=== PATIENT | female | born 1965 | race Caucasian/White ===

== ENCOUNTER 2017-04-04 19:51 | Emergency (ER) | payer MEDICAID ==
[~2017-04-04] VITALS: Ht 172.7 cm; Wt 74.8 kg
[~2017-04-04 19:51] MED LIST: AMITRIPTYLINE50 MG PO; ANTIDEPRESSANT PO; CITALOPRAM HYDR20 MG PO; CYCLOBENZ5 MG PO; HYDROCODONE/ACE1 TA5 PO; HYDROXYZINE50 MG PO; METHADONE 10MG10 MG PO; METOPROLOL50 MG PO; NAPROXEN D/R500 MG PO; OXYCODONE CR10 MG PO; PROPRANOLOL ER80 MG PO; TOPAMAX200 MG PO
--- OUTSIDE RECORDS SUMMARY | 2017-04-04 20:18 | External Medical Summary Rpt ---
Author Author , VINNIE Hager VINNIE Address Unknown Phone [email or web address] [facility] Care Team Providers Care Security Public Safety Officer Name Role Phone A Ariana HIGGINS MD PSC, A Unavailable Unavailable Ariana HIGGINS MD PSC ALHAJERI ABD, Unavailable Unavailable ALHAJERI ABD [facility] Unavailable Unavailable INC, [facility] [employer] Unavailable Unavailable INC, [employer] [facility] [place] LES, [place] Unavailable Unavailable LES AWOSIKA HENRRY, AWOSIKA Unavailable Unavailable HENRRY AWOSIKA HENRRY, AWOSIKA Unavailable Unavailable PUJA DAVALOS, Unavailable Unavailable PUJA SANCHEZ [facility], Unavailable Unavailable [email or web address] Unavailable Unavailable PRACTICE L, [facility] ISAURA FARRIS, Unavailable Unavailable ISAURA FARRIS, Unavailable Unavailable LEO COE Unavailable Unavailable LEO HICKS Unavailable Unavailable LEO ZEPEDA Unavailable Unavailable JONNIE RICHARD, Unavailable Unavailable JONNIE BAILEY [facility] Unavailable Unavailable LABS IN, [facility] ALO KATHY, ALO Unavailable Unavailable KATHY ADAL GEOVANI, Unavailable Unavailable ADAL GETACHEW MARI, Unavailable Unavailable GETACHEW [facility] Unavailable [facility]available [facility], Unavailable [facility]available [facility] ERROL JOSIAH, ERROL JOSIAH Unavailable Unavailable [facility] Unavailable Unavailable [facility], [facility] Unavailable Unavailable [facility], PSC, [facility], Unavailable Unavailable PSC FIELD AM[facility], FIELD AMB Unavailable Unavailable FIELD AMB, FIELD AM[facility] Unavailable Unavailable HUBER BERENICE, Unavailable Unavailable HUBER BERENICE SEGAL SET, SEGAL SET Unavailable Unavailable MICK BERENICE, MICK Unavailable Unavailable BERENICE GENNA COATES, Unavailable Unavailable ZULMA PORTILLO Unavailable Unavailable ZULMA WAYNE Unavailable Unavailable MINOR BUCKNER, Unavailable Unavailable MINOR VILLARREAL [facility] Unavailable Unavailable INC, [facility] CORDERO LUMA, CORDERO Unavailable Unavailable LUMA CORDERO LUMA, CORDERO Unavailable Unavailable LUMA [facility] Un[place] Unavailable [place] [facility], [facility] [place] [facility], Unavailable Unavailable [facility] RASHID MIKE Unavailable Unavailable JUDD MAYA MD Unavailable Unavailable PLC, [facility] MD PLC JUDD MAYA Unavailable Unavailable MDPLC, JUDD MAYA MDPLC GRADY TONI, GRADY Unavailable Unavailable TONI [facility] Un[facility], [facility], Unavailable Unavailable [facility] LAB[facility] & Unavailable Unavailable [facility] Unavailable Unavailable [facility], [facility] Unavailable Unavailable CENTER, [facility] Brea Barton MD, Unavailable Unavailable Brea Barton MD [facility] Unavailable Unavailable SERVICES, [facility] Unavailable Unavailable [facility] Unavailable Unavailable [facility] Unavailable Unavailable PRACTIC, [facility] Unavailable Unavailable MEDICAL, [facility] Unavailable Unavailable [facility]ICAL CENTER, [facility] Unavailable Unavailable MEDICAL, [facility] VISHAL RODGERS Unavailable Unavailable SOFIYA JAM, SOFIYA Unavailable Unavailable JAM SOFIYA JAM, SOFIYA Unavailable Unavailable JAM NONI CLAUDIO, NONI Unavailable Unavailable [facility] Unavailable Unavailable LAB, [facility] Unavailable Unavailable LAB, [facility] PETTEY JAM, PETTEY Unavailable Unavailable JAM PRISTAS, PRISTAS Unavailable Unavailable PRISTAS JULIANNA, PRISTAS Unavailable Unavailable JULIANNA [facility], Unavailable Unavailable [facility] CARMINA TRIP, CARMINA Unavailable Unavailable WAKENDALL ROY, Unavailable Unavailable KENDALL GREWAL REYNOLDS Unavailable Unavailable RISON ALL, RISON ALL Unavailable Unavailable RISON ALL, RISON ALL Unavailable Unavailable RISON, FAITH T, Unavailable Unavailable RISON, FAITH T DEVIN RATLIFF DEVIN Unavailable Unavailable DANIELE RAMIREZ Unavailable Unavailable DANIELE FRANK Unavailable Unavailable CADE PAVAN-KALEE, Unavailable Unavailable SHOJAEI-KALEE GRAY, GRAY Unavailable Unavailable [facility] Unavailable Unavailable [facility], [facility] GAUTAM, GAUTAM Unavailable Unavailable [facility] Unavailable Unavailable [facility], [facility] Unavailable Unavailable [facility]ENT, [facility] Unavailable Unavailable PHYSICIANS, [facility] Unavailable Unavailable [place], [facility], Unavailable Unavailable [facility] Unavailable Unavailable HOSPITALS, [facility] Unavailable Unavailable ASSIST, [facility], Unavailable Unavailable [facility] FANNIE DON, FANNIE Unavailable Unavailable DON FANNIE DON, FANNIE Unavailable Unavailable DON [facility], Unavailable Unavailable [facility] MAG [facility], Unavailable Unavailable [facility] YOUNG FROY, YOUNG FROY Unavailable Unavailable SAM UGALDE, Unavailable Unavailable SAM UGALDE Purpose Continuity of Care Document - 10-01-2009 through 2016 Problems Code Diagnosis DOS Provider Status M542 CERVICALGIA 09-28-2016 [facility] R200 ANESTHESIA 09-28-2016 [facility] OF SKIN PHYSICIANS GROUP M4046 POSTURAL 06-18-2016 [facility] LORDOSIS SERV LUMBAR FOUNDATION REGION M545 LOW BACK 06-18-2016 [facility] PAIN PHYSICIANS ASSIST M549 DORSALGIA 06-18-2016 [facility] M7071 OTHER 06-17-2016 [facility] BURSITIS OF SERV HIP RIGHT FOUNDATION HIP M86004 PAIN IN 06-16-2016 [facility] RIGHT HIP SERV FOUNDATION M899 DISORDER OF 06-16-2016 [facility] BONE SERV UNSPECIFIED FOUNDATION M4722 OT 06-03-2016 [facility] MEDICAL W/RADICULOP ATHY CERVICAL REGION M5020 OT 06-03-2016 [facility] CERVICAL RADIOLOGY DISC ASSOCIAT DISPLACEMEN T UNS CERV REGION M5126 OT 06-03-2016 [facility] INTERVERTEB RADIOLOGY RAL DISC ASSOCIAT DISPLACEMEN T LUMBAR RGN M5416 RADICULOPAT 06-03-2016 [facility] HY LUMBAR REGIONAL REGION MEDICAL [id number] ZAINABGAMA-SAVANNAH 05-21-2016 [facility] IS TYP I RADIOLOGY PHYS FX UP ASSOCIAT RT FEM INIT CLOS N84207 PAIN IN 03-26-2016 [facility] RIGHT WRIST RADIOLOGY ASSOCIAT R51 HEADACHE 03-14-2016 [facility] RADIOLOGY ASSOCIAT R936 ABNORMAL 03-14-2016 [facility] FINDINGS ON RADIOLOGY DIAGNOSTIC ASSOCIAT IMAGING OF [place] [id number] UNSPECIFIED 03-14-2016 [facility] INJURY OF RADIOLOGY HEAD ASSOCIAT INITIAL ENCOUNTER U029ZKF UNSPECIFIED 03-14-2016 [facility] INJURY OF RADIOLOGY NECK ASSOCIAT INITIAL ENCOUNTER R403AWG UNSPECIFIED 03-14-2016 [facility] INJURY OF RADIOLOGY THORAX ASSOCIAT INITIAL ENCOUNTER U51851O UNSPECIFIED 03-14-2016 [facility] INJURY RADIOLOGY RIGHT ELBOW ASSOCIAT INITIAL ENCOUNTER X10486W UNSPECIFIED 03-14-2016 [facility] INJURY RADIOLOGY LEFT ELBOW ASSOCIAT INITIAL ENCOUNTER U15912L UNS 03-14-2016 [facility]ERG[facility] RIGHT PHYS PATELLA INITIAL ENC CLOSED FX K1858CM PSGR INJ 03-14-2016 [facility] N EMERGENCY MOTOR VEH PHYS TRAFFIC ACC INIT ENC Z10189 MIGRAINE 01-21-2016 [facility] MEDICAL UNS NOT SERV INTRACT W/O FOUNDATION STATUS MIGRAINOSUS G4440 DRUG-INDUCE 01-21-2016 [place] [facility] D HEADACHE SERV NEC NOT FOUNDATION INTRACTABLE M6281 MUSCLE 01-21-2016 [facility] WEAKNESS SERV GENERALIZED FOUNDATION M797 FIBROMYALGI 01-21-2016 [facility] A SERV FOUNDATION U6091NO POISON UNS 01-21-2016 [facility] JUDY SERV ANTIPYRET FOUNDATION ANTIRHEUM ACC INIT ENC H608X3 OTHER 11-19-2015 [facility] OTITIS PHYSICIAN EXTERNA PRACTIC BILATERAL H6983 OTHER SPEC 11-19-2015 [facility] DISORDERS PHYSICIAN EUSTACHIAN PRACTIC TUBE BILAT 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 [place] DISC DEGENERATIO N UNS CERV REGION 3393 DRUG 04-24-2015 [facility] INDUCED SERV HEADACHE FOUNDATION NOT ELSEWHERE CLASSIFIED 93519 MIGRAINE 04-24-2015 [facility] INTRACT W/O STATUS MIGRAINOSUS 69268 OTHER&UNSPE 04-24-2015 [facility] CIFIED DISC SERV DISORDER [facility] CERVICAL REGION 7840 HEADACHE 04-24-2015 [facility] SERV FOUNDATION E9359 UNS 04-24-2015 [facility] MEDICAL ANALGESIC&A SERV NTIPYRETIC [place]OUND[place] [address] CONDUCTIVE 04-09-2015 [facility] HEARING PHYSICIAN LOSS PRACTIC BILATERAL 7804 DIZZINESS 04-09-2015 [facility] AND PHYSICIAN GIDDINESS PRACTIC 05444 GENERALIZED 12-27-2014 [facility] ANXIETY RG DISORDER 4019 UNSPECIFIED 09-17-2014 [facility] ESSENTIAL [facility] HYPERTENSIO ASSOCIAT N 7813 LACK OF 09-17-2014 [facility] COORDINATIO RADIOLOGY N ASSOCIAT 87737 OTHER 09-06-2014 [facility] CHRONIC PHYSICIAN OTITIS PRACTIC EXTERNA 470 DEVIATED 09-06-2014 [facility] NASAL PHYSICIAN SEPTUM PRACTIC 75611 ESOPHAGEAL 09-06-2014 [facility] REFLUX PHYSICIAN PRACTIC 7291 UNSPECIFIED 07-17-2014 A Ariana HIGGINS MYALGIA PSC AND MYOSITIS 16305 OTHER 07-17-2014 Henrique HIGGINS MALAISE AND PSC FATIGUE 87367 SUBJECTIVE 05-16-2014 [facility] TINNITUS PHYSICIAN PRACTIC 56692 UNSPECIFIED 05-16-2014 [facility] ABNORMAL PHYSICIAN AUDITORY PRACTIC PERCEPTION 4778 ALLERGIC 05-16-2014 [facility] RHINITIS PHYSICIAN DUE TO PRACTIC OTHER ALLERGEN 7061 OTHER ACNE 05-16-2014 [facility] PHYSICIAN PRACTIC 50982 ACUTE 05-07-2014 [facility] SWIMMERS PHYSICIAN EAR PRACTIC 3804 IMPACTED 05-07-2014 [facility] CERUMEN PHYSICIAN PRACTIC 24510 ACQ 05-07-2014 [facility] STENOSIS PHYSICIAN EXTERNAL PRACTIC EAR CA[place] SEC INFLAMMATIO N 48138 OTOGENIC 05-07-2014 [facility] PAIN PHYSICIAN PRACTIC 7856 ENLARGEMENT 05-07-2014 [facility] OF LYMPH PHYSICIAN NODES PRACTIC 64665 CHRONIC 11-09-2013 FIELD AMB MIGRAINE W/O AURA W/O INTRACTABLE W/O SM 4779 ALLERGIC 10-05-2013 [facility] RHINITIS CAUSE UNSPECIFIED 4659 ACUTE URIS 08-22-2013 [facility] MCINTYRE OF UNSPECIFIED SITE 7862 COUGH 08-22-2013 SO[facility] MCINTYRE 35916 OTHER 08-14-2013 [facility] CHRONIC MAG PAIN 15909 OSTEOARTHRO 08-14-2013 [facility] S UNSPEC MAG WHETHER GEN/LOC UNSPEC SITE 61004 PAIN IN 08-14-2013 [facility] JOINT, MAG SHOULDER REGION 7245 UNSPECIFIED 08-14-2013 [facility] BACKACHE MAG 7273 OTHER 04-19-2013 SOFIYA MCINTYRE BURSITIS DISORDERS 7210 CERVICAL 04-10-2013 [facility] 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 22053 MEDIAL 03-15-2013 [facility] EPICONDYLIT PHYSICIANS IS OF ELBOW GROUP 30309 CLOSED 03-15-2013 [facility] FRACTURE OF PHYSICIANS HEAD OF GROUP RADIUS 41064 MIGRAINE 03-14-2013 [facility], PSC W/O AURA W/O INTRACT W/O STAT MIGRNOSUS 32433 OTHER ACUTE 03-14-2013 ENTLC, PSC OTITIS EXTERNA 94466 DYSFUNCTION 03-14-2013 [facility], PSC OF EUSTACHIAN TUBE 22983 SENSORY 03-14-2013 ENT[facility], PSC HEARING LOSS BILATERAL 6826 CELLULITIS 03-09-2013 [facility] AND ABSCESS PRIMARY OF LEG CARE CENTER EXCEPT FOOT 9492 BLISTERS 03-09-2013 [facility] W/EPIDERMAL PRIMARY LOSS DUE CARE CENTER BURN UNSPEC SITE 2781 LOCALIZED 02-01-2013 [facility] 62989 LATERAL 02-01-2013 [facility] EPICONDYLIT PHYSICIANS IS OF ELBOW GROUP 14057 CONTUSION 02-01-2013 [facility] OF ELBOW PHYSICIANS GROUP 9593 INJURY 02-01-2013 [place] OTHER&UNSPE MEDICAL CIFIED IMAGING ASS ELBOW FOREARM&WRI ST 24741 PAIN IN 01-16-2013 [place] JOINT, HAND MEDICAL IM[facility]ING ASS 7295 PAIN IN 01-16-2013 [place] SOFT MEDICAL TISSUES OF IMAGING ASS LIMB 813.05 813.05 FX 01-16-2013 [facility] 8419 SPRAIN&STRA 01-16-2013 [facility] IN EMERGENCY UNSPECIFIED SERVICES SITE ELBOW&FOREA RM E825.8 E825.8 MV 01-16-2013 [facility] NEC E8889 UNSPECIFIED 01-16-2013 [facility] 7213 LUMBOSACRAL 12-13-2012 JUDD MAYA MD SPONDYLOSIS PLC WITHOUT MYELOPATHY 4618 OTHER ACUTE 11-11-2012 [facility] SINUSITIS [facility]ARE CENTER 2299 BENIGN 09-29-2012 [facility] NEOPLASM OF PRIMARY CARE CENTER UNSPECIFIED SITE V7231 ROUTINE 09-29-2012 [facility] GYNECOLOGIC PRIMARY AL CARE CENTER EXAMINATION V7610 UNSPECIFIED 09-29-2012 [facility] BREAST PRIMARY SCREENING CARE CENTER 72861 OTHER 09-07-2012 [place] DISEASES OF MEDICAL LUNG NOT IMAGING ASS ELSEWHERE CLASSIFIED 31839 ABDOMINAL 08-09-2012 [facility] PAIN, PRIMARY EPIGASTRIC CARE CENTER 7260 ADHESIVE 07-18-2012 [facility] EUSTIS OF SHOULDER PHYSICIANS 19929 OCCL&STENOS 05-25-2012 [place] MX&BILAT MEDICAL PRECERBRL IMAGING ASS ART W/O INFARCT 7842 SWELLING 05-25-2012 [facility] MASS OR [facility] LUMP IN INC HEAD AND NECK 7224 DEGENERATIO 04-19-2012 [facility] N OF MEM HOS[facility] CERVICAL INC INTERVERTEB RAL DISC 7231 CERVICALGIA 04-19-2012 [facility] 77868 SPASM OF 04-19-2012 [facility] MUSCLE [facility]OS[facility] INC 7822 LOCALIZED 04-19-2012 [facility] SUPERFICIAL [facility]OS[facility] SWELLING INC MASS OR LUMP 8489 UNSPECIFIED 04-19-2012 [facility] SITE OF MEM HOSP SPRAIN AND INC STRAIN 8470 NECK SPRAIN 04-06-2012 [facility] AND STRAIN EMERGENCY SERVICES 89443 BORDERLINE 04-05-2012 [facility] HENRRY GLAUCOMA WITH OCULAR HYPERTENSIO N 3671 MYOPIA 04-05-2012 [facility] HENRRY 22102 OTHER VOICE 01-12-2012 [facility] AND [facility] DISORDERS 2129 LIZ 12-23-2011 [facility] NEOPLASM REGIONAL RESP&INTRAT MEDICAL HORACIC ORGN SITE UNSPEC 6259 UNSPEC 09-24-2011 FANNIE BAUTISTA SYMPTOM ASSOC W/FEMALE GENITAL ORGANS 7242 LUMBAGO 09-24-2011 FANNIE BAUTISTA V6709 FOLLOW-UP 09-24-2011 FANNIE BAUTISTA EXAMINATION FOLLOWING OTHER SURGERY 50351 PAIN IN 09-16-2011 ST JO[facility], SITE JANE PHYSICIANS UNSPECIFIED 4928 OTHER 09-15-2011 LEO MOHAMUD EMPHYSEMA 5180 PULMONARY 09-15-2011 LE[facility] MOHAMUD COLLAPSE 2189 LEIOMYOMA 08-11-2011 [facility] OF [facility]TER[facility], [place] UNSPECIFIED INC 6160 CERVICITIS 08-11-2011 [facility] AND [place] ENDOCERVICI INC TIS 6253 DYSMENORRHE 08-11-2011 [facility] A [facility]ARE [facility] 6262 EXCESSIVE 08-11-2011 [facility] OR FREQUENT PRIMARY CARE CENTER MENSTRUATIO N 6268 OTH D/O 08-11-2011 DANIELE MOHAMUD MENSTRUATIO N&OTH ABN BLEED FE GNT TRACT 45753 ABDOMINAL 08-11-2011 [facility] PAIN RIGHT PRIMARY LOWER CARE CENTER QUADRANT 4871 INFLUENZA 08-10-2011 [facility] WITH OTHER REGIONAL RESPIRATORY MEDICAL MANIFESTATI ONS V7283 OTHER 08-10-2011 [facility] SPECIFIED REGIONAL PRE-OPERATI MEDICAL VE EXAMINATION 7238 OTHER 08-07-2011 RISON ALL SYNDROMES AFFECTING CERVICAL REGION 496 CHRONIC 08-05-2011 GIL GE AIRWAY OBSTRUCTION NEC V7284 UNSPECIFIED 08-05-2011 [facility] REGIONAL PRE-OPERATI MEDICAL VE EXAMINATION 52936 DISORDER OF 07-08-2011 [place] BONE AND MEDICAL CARTILAGE IMAGING ASS UNSPECIFIED V7612 OTHER 07-08-2011 [facility] SCREENING [facility] MAMMOGRAM INC 7292 UNSPECIFIED 07-02-2011 [facility] NEURALGIA PRIMARY NEURITIS CARE CENTER AND RADICULITIS 6212 HYPERTROPHY 06-18-2011 [facility] OF UTERUS PRIMARY CARE CENTER 6250 DYSPAREUNIA 06-18-2011 [facility] 06497 ABDOMINAL/P 06-18-2011 [facility] ELVIC PRIMARY SWELLING CARE CENTER MASS/LUMP UNSPEC SITE V7381 SPECIAL 05-28-2011 PATHOLOGY & SCREENING CYTOLOGY EXAMINATION LAB HUMAN PAPILVIRUS V7388 SPECIAL SCR 05-28-2011 [facility] PRIMARY EXAMINATION CARE CENTER OTH SPEC CHLAMYDIAL DZ V745 SCREENING 05-28-2011 PATHOLOGY & EXAMINATION CYTOLOGY FOR LAB VENEREAL DISEASE V762 SCREENING 05-28-2011 [facility] FOR PRIMARY MALIGNANT CARE CENTER NEOPLASM OF THE CERVIX 61478 MUSCLE 12-23-2010 [facility] WEAKNESS [facility] (GENERALIZE [place] [facility] D) 57013 OTHER 12-23-2010 [facility] GENERAL [facility] SYMPTOMS [place] [facility] 7812 ABNORMALITY 12-23-2010 [facility] OF GAIT [facility] [place] [facility] V571 OTHER 12-23-2010 [facility] PHYSICAL [facility] THERAPY [place] [address] UNSPECIFIED 07-25-2010 [facility] SITE OF PRIMARY ANKLE CARE CENTER SPRAIN AND STRAIN 7212 THORACIC 06-02-2010 JUDD Lopez SPONDYLOSIS MAYA WITHOUT MDPLC MYELOPATHY 53412 OTHER ANKLE 05-29-2010 [facility] SPRAIN AND PHYSICIANS STRAIN GROUP 98331 SWELLING OF 05-19-2010 [place] [facility] 38225 SPRAIN AND 05-19-2010 [facility] STRAIN OF EMERGENCY UNSPECIFIED SERVICES SITE OF FOOT 9597 INJURY 05-19-2010 [place] OTHER&UNSPE MEDICAL CIFIED KNEE IMAGING ASS LEG ANKLE&FOOT 7202 SACROILIITI 05-05-2010 JUDD E. S NOT MAYA ELSEWHERE [facility] CLASSIFIED 74223 OTHER JOINT 05-01-2010 [facility] DERANGEMENT [place] [facility] NEC MULTIPLE SITES 02243 OTHER 05-01-2010 [facility] DISORDERS [facility] OF SOFT [place] [facility] TISSUE 97745 ABNORMAL 05-01-2010 [facility] POSTURE [facility] [place] [facility] 4011 ESSENTIAL 01-28-2010 LABORATORY HYPERTENSIO & N, BENIGN BIODIAGNOST ICS 6929 CONTACT 01-28-2010 LABORATORY DERMATITIS& & OTHER BIODIAGNOST ECZEMA DUE ICS UNSPEC CAUSE V771 SCREENING 01-28-2010 [facility] FOR PRIMARY DIABETES CARE MELLITUS CENTERINC V7791 SCREENING 01-28-2010 [facility] FOR LIPOID PRIMARY DISORDERS CARE CENTERINC V2542 SURVEILLANC 11-18-2009 [facility] E PREV PRSC PRIMARY INTRAUTERN CARE CNTRACPT CENTERINC DEVC V2502 GENERAL 10-16-2009 [facility] OT CENTER CONTRACEPT MEASURES 21628 BORDERLINE 10-01-2009 LEXI SANCHEZ PUJA ANGLE BL FINDINGS LOW RSK Allergies, Adverse Reactions, Alerts Type Drug Allergy Adverse Reaction to Substance Substance Reaction Severity Morphine I-ITCHING Unknown Medications Na ND Rx Da Fi Fi Am Da Di Ph RX Ph St me C No te ll ll ou ys ag ar # ys at rm s nt no ma ic us Or Da si cy ia de te s n re d BU 55 04 0 No TO 39 -2 RP 00 9- Lo HICKS 18 20 ng NO 30 13 er L 1 1 Ac MG ti /M ve L AL ME 00 04 0 No OM 64 -2 ET 11 9- Lo HICKS 49 20 ng ZI 53 13 er NE 5 Ac 25 ti ve MG /M L AM PU L VA 00 10 10 0 70 5 DE 64 WI Ac ND 24 -2 -2 .0 AN 17 LS ti AZ 50 4- 4- 00 S 63 ON ve OL 86 20 20 PH 6 E 07 11 11 AR DO VA 0 MA NA GI CY LD NA R L IN 0. C 75 % GE L SM 49 10 10 0 60 30 DE 64 RI Ac 34 -0 -0 .0 AN [address] 80 6- 7- 00 S 91 N ve OO 61 20 20 PH 6 AL L 61 11 11 AR LA SO 0 MA N FT CY T EN ER IN C 10 0 MG SF TG L 00 09 09 0 90 30 DE 40 FL Ac 59 -2 -2 .0 AN 64 ET ti 10 7- 7- 00 S 41 CH ve 54 20 20 PH 9 ER 00 11 11 AR 5 MA AK CY CH AE IN L C E CI 00 08 08 0 7. 7 DE 64 RA Ac ME 06 -3 -3 50 AN 15 NK ti OD 58 0- 0- 0 S 13 IN ve EX 53 20 20 PH 3 30 11 11 AR WA OT 2 MA DE IC CY M KISER IN SP C EN SI ON ME 00 08 08 2 30 30 DE 64 RA Ac TO 37 -3 -3 .0 AN 15 NK ti ME 80 0- 0- 00 S 13 IN ve OL 42 20 20 PH 4 OL 40 11 11 AR WA -H [address] CY M Z 50 IN -2 C 5 MG TA B HY 10 08 08 2 60 6 DE [address] 70 -3 -3 .0 AN 15 NK ti OX 20 0- 0- 00 S 13 IN ve YZ 01 20 20 PH 5 IN 25 11 11 AR WA E 0 MA DE HC CY M L 50 IN C MG TA BL ET AM 00 12 12 0 30 30 DE 64 RI Ac IT 60 -0 -0 .0 AN 03 SO ti RI 32 7- 8- 00 S 71 N ve PT 21 20 20 PH 1 AL YL 43 10 10 AR LA IN 2 MA N E CY T HC L IN 50 C MG TA B AM 00 11 11 0 30 30 DE 64 RI Ac IT 60 -1 -1 .0 AN 02 SO ti RI 32 1- 1- 00 S 59 N ve PT 21 20 20 PH 4 AL YL 43 10 10 AR LA IN 2 MA N E CY T HC L IN 50 C MG TA B 00 11 11 1 30 30 DE 64 RA Ac 37 -0 -0 .0 AN 02 NK ti 81 5- 5- 00 S 30 IN ve 08 20 20 PH 1 90 10 10 AR WA 1 MA DE CY M IN C AM 00 10 10 0 30 30 DE 64 RI Ac IT 60 -1 -1 .0 AN 01 SO ti RI 32 2- 2- 00 S 23 N ve PT 21 20 20 PH 3 AL YL 43 10 10 AR LA IN 2 MA N E CY T HC L IN 50 C MG TA B AM 00 08 08 0 30 30 DE 63 RI Ac IT 60 -1 -2 .0 AN 99 SO ti RI 32 6- 3- 00 S 07 N ve PT 21 20 20 PH 8 AL YL 33 10 10 AR LA IN 2 MA N E CY T HC L IN 25 C MG TA B AM 00 07 07 2 30 30 DE 63 RI Ac IT 60 -1 -1 .0 AN 97 SO ti RI 32 2- 2- 00 S 44 N ve PT 21 20 20 PH 6 AL YL 33 10 10 AR LA IN 2 MA N E CY T HC L IN 25 C MG TA B ME 00 06 06 2 30 30 DE 63 RA Ac TO 37 -1 -1 .0 AN 96 NK ti ME 80 6- 6- 00 S 47 IN ve OL 42 20 20 PH 5 OL 40 10 10 AR WA -H [address] CY M Z 50 IN -2 C 5 MG TA B CY 00 05 06 2 30 30 DE 63 RA Ac MB 00 -1 -1 .0 AN 94 NK ti AL 23 1- 5- 00 S 99 IN ve TA 27 20 20 PH 5 03 10 10 AR WA 60 0 MA DE CY M MG IN CA C PS UL E HY 16 05 05 2 60 6 DE [address] 71 -2 -2 .0 AN 95 NK ti OX 40 8- 8- 00 S 72 IN ve YZ 08 20 20 PH 9 IN 30 10 10 AR WA E 5 MA DE HC CY M L 50 IN C MG TA BL ET 00 05 05 0 15 5 DE 63 RA Ac 14 -1 -1 .0 AN 94 NK ti 31 1- 1- 00 S 99 IN ve 47 20 20 PH 4 70 10 10 AR WA 5 MA DE CY M IN C HY 00 05 05 2 30 30 DE [address] 60 -1 -1 .0 AN 94 NK ti OC 33 1- 1- 00 S 99 IN ve HL 85 20 20 PH 6 OR 63 10 10 AR WA OT 2 MA DE HI CY M AZ ID IN E C 25 MG TA B AM 00 04 04 0 30 30 DE 63 RI Ac IT 60 -2 -2 .0 AN 94 SO ti RI 32 8- 9- 00 S 55 N ve PT 21 20 20 PH 2 AL YL 33 10 10 AR LA IN 2 MA N E CY T HC L IN 25 C MG TA B 00 03 03 0 60 30 DE 40 RI Ac 59 -0 -0 .0 AN 60 SO ti 10 2- 2- 00 S 53 N ve 85 20 20 PH 0 AL 30 10 10 AR LA 1 MA N CY T IN C 00 03 03 11 30 30 DE 63 KE Ac 00 -0 -0 .0 AN 91 EF ti 54 1- 1- 00 S 91 ve 23 20 20 PH 2 KI 41 10 10 AR MB 9 MA ER CY LY IN C CY 00 01 02 00 90 30 DE 63 HICKS Ac CL 59 -2 -1 .0 AN 90 RR ti OB 15 9- 1- 00 S 72 IE ve EN 65 20 20 PH 6 S ZA 81 10 10 AR DA ME 0 MA IN CY D E P 10 MG TA BL ET AK 50 01 01 00 1. 1 MA 60 ME Ac RE 41 -2 -2 00 YS 19 ES ti NA 90 1- 8- 0 68 E ve [address] SY [address] 1 OB HE EM /G N YN P FA AK LY HE AL TH Vital Signs 01-16-2013 21:13 Name Value Interpretat Reference Comment ion Range Body 98.8 [degF] Temperature BP 89 mm[Hg] Diastolic BP Systolic 157 mm[Hg] Heart 83 /min Rate/Pulse O2% 99 % Respiratory 18 /min Rate 01-16-2013 21:11 Name Value Interpretat Reference Comment ion Range Body 98.8 [degF] Temperature BP 89 mm[Hg] Diastolic BP Systolic 157 mm[Hg] Heart 83 /min Rate/Pulse O2% 99 % Respiratory 18 /min Rate Procedures Procedure DOS Code Location Performer Comment [facility]LE 28144 [facility] PHYSICIAN KAYLYNN EXTREMTY S GROUP W/PARASPI NL AREA COMPLETE NERVE 16751 [facility] SEANJAEI-M CONDUCTIO 7 PHYSICIAN KAYLYNN N STUDIES S GROUP 3-4 STUDIES RADEX 53747 [facility] SPINE 6 HEALTHCAR HEALTHCAR CERVICAL E E 2 OR 3 HOSPITALS HOSPITALS VIEWS RADEX 84447 [facility] SPINE 6 HEALTHCAR HEALTHCAR LUMBOSACR E E AL 2/3 HOSPITALS HOSPITALS VIEWS INJECTION J3301 [place]RAY 6 MEDICAL TRIAMCINO SERV LONE FOUNDATIO ACETONIDE N NOS 10 MG ARTHROCEN 95639 [place] TESIS 6 MEDICAL ASPIR&/IN SERV J MAJOR FOUNDATIO JT/BURSA N W/US RADEX 44154 [place] [facility] HIPS 6 MEDICAL BILATERAL SERV WITH FOUNDATIO PELVIS N 3-4 VIEWS MRI 78433 [place] [facility] SPINAL 6 CANAL RADIOLOGY LUMBAR ASSOCIAT W/O CONTRAST MATERIAL MRI 71747 [place] [facility] SPINAL 6 CANAL RADIOLOGY CERVICAL ASSOCIAT W/O CONTRAST MATRL MRI ANY 03321 [facility] JT LOWER 6 EXTREM RADIOLOGY RADIOLOGY W/CONTRAS ASSOCIAT ASSOCIAT T MATERIAL FLUOROSCO 05139 [facility] PIC 6 GUIDANCE RADIOLOGY RADIOLOGY NEEDLE ASSOCIAT ASSOCIAT PLACEMENT [place] ANY [address] [facility] U[facility] 6 LUMA EXTREMITY RADIOLOGY W/O ASSOCIAT CONTRAST MATRL RADIOLOGI 16141 [facility] C EXAM 6 [place] KNEE RADIOLOGY COMPLETE ASSOCIAT 4/MORE VIEWS RADEX 00125 [facility] SPINE 6 THORACIC RADIOLOGY RADIOLOGY 3 [place] [address] [facility] HEAD/BRAI 6 N W/O RADIOLOGY RADIOLOG[place] [address] [facility] CERVICAL 6 SPINE W/O RADIOLOGY RADIOLOGY CONTRAST ASSOCIAT ASSOCIAT MATERIAL RADEX 19769 [facility] ELBOW 6 EIDER AMINATA COMPLETE RADIOLOGY MINIMUM 3 ASSOCIAT VIEWS TYMPANOME 45106 MEADOWVIE ALO TRY 6 W KATHY PHYSICIAN PRACTIC NERVE 07667 GEORGIE CHENEY CONDUCTIO 6 MEDICAL CLAUDIO N STUDIES SERV 5-6 FOUNDATIO STUDIES N NEEDLE 97467 GEORGIE CHENEY EMG EA 6 MEDICAL CLAUDIO EXTREMTY SERV W/PARASPI FOUNDATIO NL AREA N COMPLETE MRI 89653 GEORGIE FLORIANHAMAHAMEDRI SPINAL 6 MEDICAL ABD CANAL SERV CERVICAL FOUNDATIO W/O N CONTRAST MATRL TYMPANOME 17602 [place] TRY 6 PHYSICIAN LES PRACTICE L COMPRE 80041 MEADOWVIE SEGAL SET AUDIOMETR 5 W Y PHYSICIAN THRESHOLD PRACTIC EVAL SP RECOGNIJ TYMPANOME 42086 MEADOWVIE SEGAL SET TRY 5 W PHYSICIAN PRACTIC PSYCHOTHE 04680 [facility] PRISTAS RAPY 5 .ORG JULIANNA W/PATIENT 60 MINUTES PSYCHOTHE 26558 [facility] PRISTAS RAPY 5 .ORG JULIANNA W/PATIENT 60 MINUTES PSYCHOTHE 99502 [facility] PRISTAS RAPY 5 .ORG JULIANNA W/PATIENT 60 MINUTES PSYCHOTHE 76097 [facility] PRISTAS RAPY 5 .ORG JULIANNA W/PATIENT 60 MINUTES PSYCHOTHE 72323 [facility] PRISTAS RAPY 5 .ORG W/PATIENT 60 MINUTES PSYCHIATR 30143 [facility] RODGERS IC 5 .ORG DIAGNOSTI C EVAL W/MEDICAL SERVICES PSYCHOTHE 48740 [facility] PRISTAS RAPY 5 .ORG W/PATIENT 60 MINUTES MRI BRAIN 34789 ORQUIDEA HEARD BRAIN 4 W W STEM W/O REGIONAL REGIONAL CONTRAST MEDICAL MEDICAL MATERIAL PSYCHOTHE 32549 [facility] PRISTAS RAPY 4 .ORG JULIANNA W/PATIENT 30 MINUTES PSYCHOTHE 04503 [facility] PRISTAS RAPY 4 .ORG JULIANNA W/PATIENT 30 MINUTES PSYCHOTHE 79766 [facility] PRISTAS RAPY 4 .ORG JULIANNA W/PATIENT 30 MINUTES PSYCHOTHE 75392 [facility] PRISTAS RAPY 4 .ORG JULIANNA W/PATIENT 30 MINUTES PSYCHOTHE 74022 [facility] PRISTAS RAPY 4 .ORG JULIANNA W/PATIENT 30 MINUTES PROF [facility] 37718 [place]IE ALO ALLG 4 W KATHY IMMNTX X PHYSICIAN W/PRV PRACTIC ALLGIC XTRCS 1 NJX BINOCULAR 20125 MEADOWVIE ALO 4 W KATHY MICROSCOP PHYSICIAN Y PRACTIC SEPARATE DX PROCEDURE REMOVAL 90183 ALPHONSEVIE ALO IMPACTED 4 W KATHY CERUMEN PHYSICIAN INSTRUMEN PRACTIC TATION UNILAT PROF [facility] 54577 MEADOWVIE ALO ALLG 4 W KATHY IMMNTX X PHYSICIAN W/PRV PRACTIC ALLGIC XTRCS 1 NJX ALLERGEN 15339 COMMONWEA COMMONWEA SPECIFIC 4 LTH LTH IGE MEDICAL MEDICAL EDUARDO/SEMI LABS IN LABS IN EDUARDO EA ALLERGEN PREPJ& 42030 MEADOWVIE ALO ALLERGEN 4 W KATHY IMMUNOTHE PHYSICIAN HAYDE PRACTIC 1/ROLL OPERATOR ANTIGEN INTRACUTA 67753 ORQUIDEA ALO NEOUS 4 W KATHY TESTS PHYSICIAN W/ALLERGE PRACTIC CLARISSA EXTRACTS NONINVASI 67522 FIELD AMB FIELD AMB VE 4 EAR/PULSE OXIMETRY SINGLE DETER IAADIADOO 24702 SOFIYA ARRIAZA 3 JAM JAM INFLUENZA ARTHROCEN 54277 BRENNENSKA DENEENA TESIS 3 MAG MAG ASPIR&/IN J MAJOR JT/BURSA W/O US INJ J0702 DENEENHenrique DENEENHenrique BETAMETHA 3 MAG MAG SONE ACETATE & PHOSPHATE 3 MG INJ J0702 SOFIYA ARRIAZA BETAMETHA 3 JAM JAM SONE ACETATE & PHOSPHATE 3 MG THERAPEUT 18286 SOFIYA ARRIAZA IC 3 JAM JAM PROPHYLAC TIC/DX INJECTION SUBQ/IM COMPRE 12956 ENTLC, ALO AUDIOMETR 3 PSC KATHY Y THRESHOLD EVAL SP RECOGNIJ TYMPANOME 34381 ENTLC, CA TRY 3 PSC LEI RADEX 42426 TABBY MCNAIR ELBOW 2 3 [facility] VIEWS INC INC SLINGS A4565 [facility] 3 RADEX [facility]15 [facility] AD[facility] HAND 3 MEDICAL GE[place] MINIMUM 3 IMAGING VIEWS ASS INJECTION J0595 TABBY MCNAIR 3 [facility] BUTORPHAN INC INC OL TARTRATE 1 [place] [address] SURINDER BARTON RADIAL 3 EMERGENCY BERENICE HEAD/NECK SERVICES FX W/O MANIPULAT ION THERAPEUT 52915 TABBY MCNAIR IC 3 [facility] PROPHYLAC INC INC TIC/DX INJECTION SUBQ/IM RADEX 66740 DANIELA ADAL FOREARM 2 3 MEDICAL GEOVANI VIEWS IMAGING ASS THERAPEUT 85333 ONEYDA ARRIAZA IC 3 PRIMARY JAM PROPHYLAC CARE TIC/DX CENTER INJECTION SUBQ/IM CREATININ 03828 [facility]BY MCNAIR E BLOOD 2 [facility] INC INC 3D 53726 TABBY TABBY RENDERING 2 [facility] INC INC W/INTERP& POSTPROC DIFF WORK STATION LOC Q9967 TABBY MCNAIR 300-399 2 [facility] MG/ML INC INC IODINE CONCENTRA TION PER ML CT THORAX 68778 [facility] MC[facility]IR 2 [facility] W/[place] [address] [facility]BY MCNAIR UREA 2 [facility] NITROGEN [place] [address] [facility] THYROID 2 DIAGNOSTI DIAGNOSTI STIMULATI CS CS NG HORMONE TSH BASIC 26957 [facility] METABOLIC 2 DIAGNOSTI DIAGNOSTI PANEL CS CS CALCIUM TOTAL COLLECTIO 37539 [facility] N VENOUS 2 DIAGNOSTI DIAGNOSTI BLOOD CS CS VENIPUNCT URE ARTHROCEN 97557 [facility] T[facility] 2 JANE MAG ASPIR&/IN J MAJOR PHYSICIAN JT/BURSA S W/O US INJECTION J3301 BRENNENHenrique 2 JANE MAG TRIAMCINO LONE PHYSICIAN ACETONIDE S NOS 10 MG DUPLEX 49682 [facility]BY MCNAIR SCAN 2 [facility] EXTRACRAN INC INC IAL ART COMPL BI STUDY MRI ORBIT 30786 [place] ADAL FACE 2 MEDICAL GE[place]ANI &/NECK IMAGING W/O ASS CONTRAST MRI 38765 [place] ADAL SPINAL 2 MEDICAL GE[place] CANAL IMAGING CERVICAL ASS W/O CONTRAST MATRL 3D 90620 TABBY MCNAIR RENDERING 2 [facility] W/INTERP INC INC & POSTPROCE SS SUPERVISI ON COLLECTIO [address] N VENOUS 2 JANEJOCELYN LARA BLOOD VENIPUNCT MEDICALCE MEDICALCE URE NTER NTER SEDIMENTA [address] TION RATE 2 JANEALVIN DUNLAPTH RBC AUTOMATED MEDICALCE MEDICALCE NTER NTER C-REACTIV [address] E PROTEIN 2 JANEALVIN LARA MEDICALCE MEDICALCE NTER NTER RADEX 13622 [place] ADAL SPINE 2 MEDICAL [place] CERVICAL IMAGING 2 OR 3 ASS VIEWS CERVICAL L0120 [facility] FLEXIBLE 2 NONADJUST ABLE PREFAB OFF SHELF THERAPEUT 22919 [facility] IC 2 [facility] PROPHYLAC INC INC TIC/DX INJECTION SUBQ/IM RADEX 68967 TABBY MCNAIR SPINE 2 [facility] CERVICAL INC INC 6 OR MORE VIEWS VISUAL 78117 AWOSIKELLY AWOSIKA FIELD XM 2 HENRRY HENRRY UNI/BI W/INTERP INTERMED EXAM DETERMINA 36385 AWOSIKA AWOSIKA TION 2 HENRRY HENRRY REFRACTIV E STATE FUNDUS 36072 AWOS[facility] AWOSIKA PHOTOGRAP 2 HENRRY HENRRY HY W/INTERPR ETATION & REPORT CT THORAX 56151 [facility] 2 LUMA W/CONTRAS RADIOLOGY T ASSOCIAT MATERIAL 3D 48757 [facility] RENDERING 2 LUMA W/INTERP RADIOLOGY & ASSOCIAT POSTPROCE SS SUPERVISI ON CYCLIC 91048 [facility] CITRULLIN 1 JANE LARA ATED PEPTIDE MEDICALCE [place] [address] [facility] HEPATITIS 1 JANE LARA B SURFACE MEDICALCE MEDICALCE ANTIGEN NTER NTER COLLECTIO 69552 [facility] N VENOUS 1 JANE LARA BLOOD VENIPUNCT MEDICALCE MEDICALCE URE NTER NTER SEDIMENTA 28978 [facility] TION RATE 1 JANE LARA RBC AUTOMATED MEDICALCE MEDICALCE NTER NTER RHEUMATOI 21374 [facility] D FACTOR 1 JANE LARA QUALITATI VE MEDICALCE MEDICALCE NTER NTER RADEX 63728 [facility] FOOT 1 JANE MAG COMPLETE MINIMUM 3 PHYSICIAN VIEWS S RADIOLOGI 72736 [facility] C 1 JANE EXAMINATI ON KNEE 3 PHYSICIAN VIEWS S GENERAL 23825 [facility] HEALTH 1 JANE LARA PANEL MEDICALCE MEDICALCE NTER NTER RADEX 77792 [facility] HAND 1 JANE MAG MINIMUM 3 VIEWS PHYSICIAN S C-REACTIV [address] E PROTEIN 1 JANE LARA MEDICALCE MEDICALCE NTER NTER HEPATITIS [address] C 1 JANE LARA ANTIBODY MEDICALCE MEDICALCE NTER NTER LOCM Q9967 MEADOWVIE MEADOWVIE 300-399 1 W W MG/ML REGIONAL REGIONAL IODINE MEDICAL MEDICAL CONCENTRA TION PER ML CT THORAX 78277 [facility] 1 [facility] W/CONTRAS T MATERIAL COLLECTIO 46435 MEADOWVIE MEADOWVIE N VENOUS 1 W W BLOOD REGIONAL REGIONAL VENIPUNCT MEDICAL MEDICAL URE COMPREHEN 60631 MEADOWVIE MEADOWVIE SIVE 1 W W METABOLIC REGIONAL REGIONAL PANEL MEDICAL MEDICAL 3D 25023 [facility] RENDERING 1 [facility] W/INTERP & POSTPROCE SS SUPERVISI ON ANESTHESI 33021 DANIELE SANABRIA A 1 [facility] INTRAPERI TONEAL LOWER ABD W/LAPS NOS LAPAROSCO 56563 ONEYDA GRECO PY W 1 PRIMARY DON TOTAL CARE HYSTERECT CENTER PATIENCE UTERUS 250 GM/< LEVEL V 26489 AMERIPATH AMERIPATH SURG 1 [facility] PATHOLOGY INC INC GROSS&BERENICE ROSCOPIC EXAM RADIOLOGI 18571 MEADOWVIE MEADOWVIE C EXAM 1 W W CHEST 2 REGIONAL REGIONAL VIEWS MEDICAL MEDICAL FRONTAL&L ATERAL INJECTION 33693 RISON ALL RISON ALL 1 ANESTHETI C AGENT [facility] NRV RADIOLOGI 98760 MEADOWVIE MEADOWVIE C EXAM 1 W W CHEST 2 REGIONAL REGIONAL VIEWS MEDICAL MEDICAL FRONTAL&L ATERAL BLOOD 39557 MEADOWVIE MEADOWVIE COUNT 1 W W COMPLETE REGIONAL REGIONAL AUTO&AUTO MEDICAL MEDICAL DIFRNTL WBC ECG 45029 MEADOWVIE MEADOWVIE ROUTINE 1 W W ECG REGIONAL REGIONAL W/LEAST MEDICAL MEDICAL 12 LDS TRCG ONLY W/O I&R COMPREHEN 25120 MEADOWVIE MEADOWVIE SIVE 1 W W METABOLIC REGIONAL REGIONAL PANEL MEDICAL MEDICAL URNLS DIP 58790 ORQUIDEA NGOWVIE 1 W W STICK/TAB REGIONAL REGIONAL LET MEDICAL MEDICAL REAGENT AUTO MICROSCOP Y COLLECTIO 37978 ORQUIDEA HEARD N VENOUS 1 W W BLOOD REGIONAL [place] [address] ONEYDA LIU FANNIE TRANSVAGI 1 PRIMARY DON NAL CARE CENTER DXA BONE 73005 TABBY MCNAIR DENSITY 1 [facility] STUDY 1/> INC INC SITES AXIAL SKEL ANTINUCLE 93943 LABORATOR LABORATOR AR 1 Y & Y & ANTIBODIE BIODIAGNO BIODIAGNO S LUCIE STICS STICS SEDIMENTA 04256 LABORATOR LABORATOR TION RATE 1 Y & Y & RBC BIODIAGNO BIODIAGNO NON-AUTOM STICS STICS ATED COLLECTIO 03055 ONEYDA LIU CARMINA N VENOUS 1 PRIMARY WAD BLOOD CARE VENIPUNCT CENTER URE ANTISTREP 72525 LABORATOR LABORATOR TOLYSIN O 1 Y & Y & TITER BIODIAGNO BIODIAGNO STICS STICS RHEUMATOI 28483 LABORATOR LABORATOR D FACTOR 1 Y & Y & QUANTITAT BIODIAGNO BIODIAGNO ANUP STICS STICS DNA 41745 LABORATOR LABORATOR ANTIBODY 1 Y & Y & KOTLIK/DO BIODIAGNO BIODIAGNO UBLE STICS STICS STRANDED C-REACTIV 73096 LABORATOR LABORATOR E PROTEIN 1 Y & Y & BIODIAGNO BIODIAGNO STICS STICS IADNA 69217 LABORATOR LABORATOR CHLAMYDIA 1 Y & Y & BIODIAGNO BIODIAGNO TRACHOMAT STICS STICS IS AMPLIFIED PROBE TQ IADNA 71165 LABORATOR LABORATOR NEISSERIA 1 Y & Y & BIODIAGNO BIODIAGNO GONORRHOE STICS STICS AE AMPLIFIED PROBE TQ IADNA 03867 PATHOLOGY PATHOLOGY PAPILLOMA 1 & & VIRUS CYTOLOGY CYTOLOGY HUMAN LAB LAB AMPLIFIED PROBE TQ CYTP C/V 83933 LABORATOR LABORATOR AUTO THIN 1 Y & Y & LYR BIODIAGNO BIODIAGNO PREPJ SCR [place] [address] DANIELA GALEAS TRANSVAGI 1 MEDICAL [facility] NAL IMAGING ASS 3D 05709 DANIELA GALEAS RENDERING 1 MEDICAL [facility] IMAGING W/INTERP& ASS POSTPROC DIFF WORK STATION URINE 60863 TABBY MCNAIR 1 [facility] HOSP TEST INC [place] [address] DANIELA GALEAS ABDOMEN & 1 MEDICAL [place] PELVIS IMAGING W/CONTRAS ASS T MATERIAL RADEX 95209 DANIELA GALEAS SPINE 1 MEDICAL [facility] CERVICAL IMAGING 4 OR 5 ASS VIEWS RADEX 34096 DANIELA GALEAS SPINE 1 MEDICAL [facility] LUMBOSACR IMAGING AL ASS MINIMUM 4 VIEWS RADEX 92868 TABBY MCNAIR SPINE 1 [facility] CERVICAL INC INC 6 OR MORE VIEWS COLLECTIO 46605 ONEYDA CO CARMINA N VENOUS 1 PRIMARY WAD BLOOD CARE VENIPUNCT CENTER URE URNLS DIP 98296 ONEYDA CO CARMINA 1 PRIMARY WAD STICK/TAB CARE LET RGNT CENTER AUTO W/O MICROSCOP Y BASIC 28358 LABORATOR LABORATOR METABOLIC 1 Y & Y & PANEL BIODIAGNO BIODIAGNO [place] [address] LABORATOR LABORATOR THYROID 1 Y & Y & STIMULATI BIODIAGNO BIODIAGNO NG STICS STICS HORMONE TSH BLOOD 06332 LABORATOR LABORATOR COUNT 1 Y & Y & COMPLETE BIODIAGNO BIODIAGNO AUTO&AUTO STICS STICS DIFRNTL WBC NJX 86576 JUDD RISON ALL DX/THER 1 ErikaAngie ZULMA AGT PVRT MDPLC FACET JT LMBR/SAC 1 LEVEL NJX 15357 JUDD RISON ALL DX/THER 1 John MAYA AGT PVRT MDPLC FACET JT LMBR/SAC 2ND LEVEL MODERATE 33356 JUDD RISON ALL SEDATJ 1 John MAYA SAME MDPLC PHYS/QHP 5/>YRS INIT 30 MIN THERAPEUT 16262 [facility]/> 1 TH AREAS [facility] EACH [place] EXERCISES DSTRJ 68438 JUDD RISON ALL NULYT 1 John MAYA PVRT MDPLC FACET JT NRV CRV/THRC EA LVL DSTRJ 93398 JUDD RISON ALL NULYT 1 E. ZULMA PVRT MDPLC FACET JT NRV CRV/THRC 1 LVL FLUOR 63918 JUDD RISON ALL NEEDLE/CA 1 E. MAYA TH MDPLC SPINE/PAR ASPINAL DX/THER ADDON THERAPEUT 27386 [facility]/> 1 TH AREAS [facility] [place] EXERCISES THERAPEUT 25821 [facility] 1/> TH AREAS [facility] [place]ERCISES THERAPEUT 92197 [facility] P[facility] 1/> AREAS [facility] [place] EXERCISES THERAPEUT 77156 [facility] P[facility] 1/> AREAS [facility] [place] EXERCISES THERAPEUT 73335 [facility] PX 1/> AREAS [facility] [place] EXERCISES THERAPEUT 59646 [facility] 1/> AREAS [facility] [place] [place] EXERCISES MODERATE 30241 JUDD RISON ALL SEDATJ 1 E. MAYA SAME MDPLC PHYS/QHP 5/>YRS INIT 30 MIN NJX 21035 JUDD RISON ALL DX/THER 1 E. MAYA AGT PVRT MDPLC FACET JT CRV/THRC 3+ LEVEL NJX 64902 JUDD RISON ALL DX/THER 1 E. MAYA AGT PVRT MDPLC FACET JT CRV/THRC 2ND LEVEL NJX 06275 JUDD RISON ALL DX/THER 1 E. MAYA AGT PVRT MDPLC FACET JT CRV/THRC 1 LEVEL THERAPEUT 60852 [facility] 1/> AREAS [facility] [place] EX[place]ES THERAPEUT 46752 [facility] 1/> 1 TH TH AREAS [facility] [place] [address] [facility]/> AREAS EACH 15 [facility] [place] TH[place] W/XERSS MANUAL 40317 [facility] THERAPY TQS 1/> [facility] [place] 15 [place] [address] [facility]/> AREAS EACH 15 [facility] [place] W/XERSS APPL 25335 [facility] MODALITY 1/> AREAS [facility] [place]AN[place] L THERAPEUT 60104 [facility] PX /> AREAS [facility] [place] [place] [address] [facility]/> AREAS EACH 15 [facility] [place] W/[place] [address] [facility]/> AREAS EACH 15 [facility] [place] W/XERSS APPL 93673 [facility] MODALITY /> AREAS [facility] [place] L THERAPEUT 48161 [facility] PX /> AREAS [facility] [place] EXERCISES THERAPEUT 09818 [facility] PX /> AREAS [facility] [place] [place] [address] [facility]/> AREAS EACH 15 [facility] [place] W/XERSS MANUAL 48835 [facility] THERAPY TQS 1/> [facility] [place] EACH 15 MINUTES MODERATE 46068 JUDD RISON ALL SEDATJ 1 E. MAYA SAME MDPLC PHYS/QHP 5/>YRS INIT 30 MIN NJX 11730 JUDD RISON ALL DX/THER 1 E. ZULMA AGT PVRT MDPLC FACET JT CRV/THRC 3+ LEVEL NJX 17184 JUDD RISON ALL DX/THER 1 E. ZULMA AGT PVRT MDPLC FACET JT CRV/THRC 1 LEVEL NJX 78067 JUDD RISON ALL DX/THER 1 E. ZULMA AGT PVRT MDPLC FACET JT [place] [address] [facility]/> AREAS 1 EACH 15 [facility] [place] W/XERSS APPL 64141 [facility] MODALITY 1 /> AREAS [facility] [place] [address] [facility]/> AREAS 1 EACH 15 [facility] [place] TH[place] W/XERSS THERAPEUT 92932 [facility] PX 1/> AREAS [facility] EACH [place] EXERCISES PHYSICAL 34225 [facility] THERAP[facility] EVALUATIO [facility] [place] [address] JUDD RISON ALL DX/THER 0 E. ZULMA AGT PVRT MDPLC FACET JT CRV/THRC 3+ LEVEL NJX 49999 JUDD RISON ALL DX/THER 0 E. ZULMA AGT PVRT MDPLC FACET JT CRV/THRC 2ND LEVEL NJX 14674 JUDD RISON ALL DX/THER 0 E. ZULMA AGT PVRT MDPLC FACET JT CRV/THRC 1 LEVEL RADEX 50554 [facility] FOOT 0 [facility] COMPLETE INC INC MINIMUM 3 VIEWS RADEX 05819 TABBY IZAGUIRREON ANKLE 0 [facility] COMPLETE INC INC MINIMUM [place] [address] [facility]/> AREAS 0 EACH 15 [facility] [place] W/[place] [address] [facility]/> AREAS 0 TH TH EACH 15 [facility] [place] W/[place] [address] [facility] 1/> AREAS 0 TH TH EACH [address] [facility] [place] [address] [facility] 1/> AREAS 0 TH TH EACH 15 [facility] [place] W/XERSS DSTRJ 52691 JUDD RISON ALL NULYT 0 E. MAYA PVRT MDPLC FACET JT NRV LMBR/SAC EA LVL DSTRJ 32629 JUDD RISON ALL NULYT 0 E. MAYA PVRT MDPLC FACET JT NRV LMBR/SAC 1 LVL FLUOR 11960 JUDD RISON ALL NEEDLE/CA 0 E. MAYA TH MDPLC SPINE/PAR ASPINAL DX/THER ADDON PHYSICAL 24105 [facility] THERAP[facility] 0 TH [facility] [place] DSTRJ 94730 JUDD RISON, NULYT 0 E. MAYA FAITH T PVRT MDPLC FACET JT NRV LMBR/SAC EA LVL FLUOR 78354 JUDD RISON, NEEDLE/CA 0 E. MAYA FAITH T TH MDPLC SPINE/PAR ASPINAL DX/THER ADDON DSTRJ 84748 JUDD RISON, NULYT 0 E. ZULMA FAITH T PVRT MDPLC FACET JT NRV LMBR/SAC 1 LVL NJX 82987 JUDD RISON, DX/THER 0 E. ZULMA FAITH T AGT PVRT MDPLC FACET JT LMBR/SAC 2ND LEVEL NJX 94939 JUDD RISON, DX/THER 0 E. MAYA FAITH T AGT PVRT MDPLC FACET JT LMBR/SAC 1 LEVEL ECG 46331 BRENTONBRENTON, ROUTINE 0 DEL A DEL A ECG W/LEAST 12 LDS I&R ONLY NJX 52838 JUDD FERGUSON, DX/THER 0 John Gardiner AGT PVRT MDPLC FACET JT LMBR/SAC 1 LEVEL RADIOLOGI 75154 [facility] C EXAM [address] [place] [address] CHEST 2 [facility] VIEWS FRONTAL&[place]X [address] JUDD FERGUSON, DX/THER 0 John Gardiner AGT PVRT MDPLC FACET JT LMBR/SAC 2ND LEVEL NJX 42039 JUDD FERGUSON, DX/THER 0 EAngie Gardiner AGT PVRT MDPLC FACET JT LMBR/SAC 3+ [place] [address] [facility] TROPONIN [address] [place] [address] QUANTITAT [facility] ANUP BLOOD [address] [facility] COUNT [address] [place] [address] COMPLETE [facility] AUTO&AUTO DIFRNTL WBC BASIC [address] [facility] METABOLIC [address] [place] [address] PANEL [facility] CALCIUM TOTAL ECG 07196 [facility] ROUTINE [address] [place] [address] ECG [facility] W/LEAST 12 LDS TRCG ONLY W/O I&R DSTR 85595 JUDD TOUSSAINTON, NULYT 0 John Gardiner PVRT MDPLC FACET JT NRV CRV/THRC 1 LVL DSTRJ 19214 JUDD TOUSSAINTON, NULYT 0 John Gardiner PVRT MDPLC FACET JT NRV CRV/THRC EA LVL FLUOR 84568 JUDD FERGUSON, NEEDLE/CA 0 John Gardiner TH MDPLC SPINE/PAR ASPIN[place] [address] LABORATOR LABORATOR THYROID 0 Y & Y & STIMULATI BIODIAGNO BIODIAGNO NG STICS STICS HORMONE TSH BLOOD 46792 LABORATOR LABORATOR COUNT 0 Y & Y & COMPLETE BIODIAGNO BIODIAGNO AUTO&AUTO STICS STICS DIFRNTL WBC HEPATIC 29410 LABORATOR LABORATOR FUNCTION 0 Y & Y & PANEL BIODIAGNO BIODIAGNO STICS STICS HEMOGLOBI 87218 LABORATOR LABORATOR N 0 Y & Y & GLYCOSYLA BIODIAGNO BIODIAGNO MASSIMO A1C STICS STICS COLLECTIO 24051 ONEYDA LIU CARMINA, N VENOUS 0 PRIMARY [facility] M BLOOD CARE VENIPUNCT CENTERINC URE BASIC 90821 LABORATOR LABORATOR METABOLIC 0 Y & Y & PANEL BIODIAGNO BIODIAGNO CALCIUM STICS STICS TOTAL LIPOPROTE 33694 LABORATOR LABORATOR IN BLOOD 0 Y & Y & EDUARDO BIODIAGNO BIODIAGNO NUMBERS & STICS STICS SUBCLASSE S DSTRJ 80539 JUDD TOUSSAINTON, NULYT 0 E. ZULMA Gardiner PVRT MDPLC FACET JT NRV CRV/THRC EA LVL DSTRJ 21935 JUDD RISON, NULYT 0 E. ZULMA Gardiner PVRT MDPLC FACET JT NRV CRV/THRC 1 LVL FLUOR 56055 JUDD TOUSSAINTON, NEEDLE/CA 0 E. ZULMA Gardiner TH MDPLC SPINE/PAR ASPINAL DX/[place]X [address] JUDD RISON, DX/THER 0 E. ZULMA Gardiner AGT PVRT MDPLC FACET JT CRV/THRC 2ND LEVEL NJX 01033 JUDD RISON, DX/THER 0 E. ZULMA Gardiner AGT PVRT MDPLC FACET JT CRV/THRC 1 LEVEL NJX 70795 JUDD RISON, DX/THER 0 E. ZULMA Gardiner AGT PVRT MDPLC FACET JT CRV/THRC 3+ [place]EL NJX 40710 JUDD RISON, DX/THER 0 E. ZULMA Gardiner AGT PVRT MDPLC FACET JT CRV/THRC 3+ [place]EL NJX 45014 JUDD RISON, DX/THER 0 E. ZULMA Gardiner AGT PVRT MDPLC FACET JT CRV/THRC 1 LEVEL NJX 35683 JUDD RISON, DX/THER 0 E. ZULMA Gardiner AGT PVRT MDPLC FACET JT CRV/THRC 2ND LEVEL BLOOD 11283 ONEYDA UGALDE, COUNT 0 PRIMARY SAM HEMOGLOBI CARE N CENTERINC COLLECTIO 62592 ONEYDA UGALDE, N 0 PRIMARY SAM CAPILLARY CARE BLOOD CENTERINC SPECIMEN 3D 45196 GETACHEW C ADAL, RENDERING 0 ADAL EGTACHEW W/INTERP & POSTPROCE [place] MRI 63847 GETACHEW C ADAL, SPINAL 0 ADAL GETACHEW CANAL LUMBAR W/O CONTRAST MATERIAL MRI 66554 GETACHEW C ADAL, SPINAL 0 ADAL GETACHEW CANAL CERVICAL W/[place]X 06475 CHERELLE VILLARREAL, DX/THER 0 MINOR Ziegler AGT PVRT FACET JT CRV/THRC 2ND [place]EL NJX 32270 CHERELLE VILLARREAL, DX/THER 0 MINOR Ziegler AGT PVRT FACET JT CRV/THRC 1 LEVEL NJX 23425 CHERELLE VILLARREAL, DX/THER 0 MINOR Ziegler AGT PVRT FACET JT CRV/THRC 3+ LEVEL GONADOTRO 13341 ORQUIDEA HEARD PIN 0 W W [facility] CENTER CENTER ANUP COLLECTIO 13985 ORQUIDEA HEARD N VENOUS 0 W W [facility] CENTER SCREENING 75837 DAYSI BAILEY, [address] MAMMOGRAP RADIOLOGY HY BILATERAL ASSOCIATE S PSC IADNA 62727 [facility] [place] [facility] TRACHOMAT IS AMPLIFIED PROBE TQ CYTP 86483 [facility] CERV/VAG 0 [facility] AUTO THIN LAYER PREP MNL SCREEN IADNA 14606 [facility] [place] 0 [facility] GONORRHOE AE AMPLIFIED PROBE TQ DETERMINA 12671 LAURA SANCHEZ, TION 0 PUJA LUO REFRACTIV E STATE FUNDUS 73912 LAURA SANCHEZ, PHOTOGRAP 0 PUJA LUO HY W/INTERPR ETATION & REPORT OPHTH 54201 LAURA SANCHEZ, MEDICAL 0 PUJA LUO XM&EVAL COMPRE NEW PT 1/> VST APPLICATI 93.54 M. Leo ON OF Mick DIAZ SPLINT Encounters Encounter Start End Date Code Location Performer Type Date [facility] TAB[facility] - 7 7 [facility] 84103 [facility] 6 [place] PHYSIC[place] NEW/ESTAB S ASSIST PATIENT 40 MIN [facility]OSP[facility] - 6 [facility] OFFICE 03790 [facility] 6 6 [place] PHYS[place] NEW/ESTAB S ASSIST PATIENT 40 MIN HOSPITAL MEAWVIE - 6 6 W [facility] T MEDICAL EMERGENCY 95911 [facility] DEPT 6 6 JACOB CHR VISIT EMERGENCY HIGH PHYS SEVERITY& THREAT [facility] UNIVERSIT [facility] 6 6 Y [facility] T OFFICE 29968 [facility] 6 MEDICAL TONI T VISIT SERV 25 FOUNDATIO MINUTES N OFFICE 03260 [facility] 6 6 Y T VISIT 5 HOSPITAL MINUTES OFFICE 21797 [facility] 6 6 W KATHY T VISIT 5 PHYSICIAN MINUTES [facility] UN[facility] 6 6 Y [facility] T OFFICE 90496 [place] [facility] 5 MEDICAL TONI T VISIT SERV 25 FOUNDATIO MINUTES N OFFICE 60777 [facility] 5 5 Y T [facility]ISIT 5 [facility] UNIVERSIT - [address] [facility] UNIVERSIT [facility] 5 5 Y [facility] T OFFICE 54709 [place] [facility] 5 5 MEDICAL TONI ION SERV NEW/ESTAB FOUNDATIO PATIENT N 60 MIN OFFICE 57428 [facility] 5 5 Y T VISIT 5 [facility] CAPRIWSONY - 4 4 W OUTPATIEN REGIONAL T MEDICAL OFFICE 50729 [facility] 4 4 W KATHY T VISIT PHYSICIAN 25 PRACTIC MINUTES OFFICE 04008 A C FIELD AMB OUTPATIEN 4 4 RONALDO DIAZ T VISIT PSC 15 MINUTES OFFICE 77101 [facility] 4 4 W KATHY T VISIT PHYSICIAN 15 PRACTIC MINUTES OFFICE 06298 [facility] 4 4 W KATHY T VISIT PHYSICIAN 15 PRACTIC MINUTES OFFICE 17936 FIELD AMB FIELD AMB OUTPATIEN 4 4 T VISIT 15 MINUTES OFFICE 30228 FIELD AMB FIELD AMB OUTPATIEN 4 4 T VISIT 15 MINUTES OFFICE 78160 FIELD AMB FIELD AMB OUTPATIEN 4 4 T NEW 30 MINUTES OFFICE 36205 SOFIYA ARRIAZA OUTPATIEN 3 3 JAM JAM T VISIT 25 MINUTES OFFICE 93912 WINIARSKA WINIARSKA OUTPATIEN 3 3 MAG MAG T VISIT 25 MINUTES OFFICE 12500 SOFIYA OUTPATIEN 3 3 JAM T VISIT 25 MINUTES OFFICE 77328 ZULMA MAYA OUTPATIEN 3 3 STEPHANIE STEPHANIE T VISIT 5 MINUTES OFFICE 00530 [facility] OUTPATIEN 3 3 PHYSICIAN JAM T VISIT S GROUP 15 MINUTES OFFICE 12053 [facility], [place] CONSULTAT 3 3 PSC LEI ION NEW/ESTAB PATIENT 40 MIN OFFICE 95427 JUDD HUBER OUTPATIEN 3 3 John MAYA BERENICE T VISIT 5 MDPLC MINUTES OFFICE 22291 ONEYDA ARRIAZA OUTPATIEN 3 3 PRIMARY JAM T VISIT CARE 25 CENTER MINUTES OFFICE 34412 JUDD MAYA OUTPATIEN 3 3 ZULMA STEPHANIE T VISIT 5 MD PLC MINUTES OFFICE 05153 [facility] OUTPATIEN 3 3 PHYSICIAN JAM T VISIT S GROUP 15 MINUTES [facility]OSPITAL [facility] - 3 3 [facility] T OFFICE [address] [facility] DENEENA OUTPATIEN 3 3 JANE MAG T VISIT 25 PHYSICIAN MINUTES S OFFICE 88348 [facility] OUTPATIEN 3 3 PHYSICIAN JAM T NEW 30 S GROUP MINUTES Emergency KELLY Barton MD (ER) 3 19:39 3 21:14 [facility] TABBY - 3 3 [facility] OUTPATIEN INC T EMERGENCY 12321 SURINDER BARTON 3 3 EMERGENCY BERENICE DEPARTMEN SERVICES T VISIT HIGH/URGE NT SEVERITY EMERGENCY 78337 [facility] 3 3 [facility] DEPARTMEN INC T VISIT MODERATE SEVERITY OFFICE 06984 JUDD FERGUSON ALL OUTPATIEN 3 3 MAYA T VISIT 5 PLC MINUTES OFFICE 43865 JUDD FERGUSON ALL OUTPATIEN 3 3 MAYA T VISIT 5 PLC MINUTES OFFICE 88406 JUDD HUBER OUTPATIEN 3 3 E. MAYA BERENICE T VISIT MDPLC 10 MINUTES OFFICE 27954 [facility] CO OUTPATIEN 3 3 PRIMARY T VISIT CARE 15 CENTER MINUTES OFFICE [address] [facility] JOLYNN OUTPATIEN 3 3 JANE MAG T VISIT 25 PHYSICIAN MINUTES S OFFICE 76020 JUDD HUBER OUTPATIEN 3 3 MAYA BERENICE T VISIT PLC 10 MINUTES PERIODIC 90304 [facility] PREVENTIV 3 3 PRIMARY E MED EST CARE PATIENT CENTER 40-64YRS OFFICE 53513 [facility] CO OUTPATIEN 3 3 PRIMARY T VISIT CARE 15 CENTER [facility] TABBY - 2 2 [facility] OUTPATIEN INC T OFFICE 88877 JUDD TOUSSAINTON ALL OUTPATIEN 2 2 E. MAYA T VISIT MDPLC 10 MINUTES OFFICE 21099 [facility] CO OUTPATIEN 2 2 PRIMARY T VISIT CARE 15 CENTER MINUTES OFFICE 72135 [facility] OUTPATIEN 2 2 PRIMARY T VISIT CARE 15 CENTER MINUTES OFFICE 42815 JUDD MAYA OUTPATIEN 2 2 E. MAYA STEPHANIE T VISIT MDPLC 15 MINUTES OFFICE 36222 [facility] OUTPATIEN 2 2 JANE MAG T VISIT 25 PHYSICIAN MINUTES S OFFICE 10622 JUDD RISON ALL OUTPATIEN 2 2 E. MAYA T VISIT MDPLC 10 MINUTES OFFICE 32653 JUDD TOUSSAINTON ALL OUTPATIEN 2 2 E. MAYA T VISIT [facility] 10 MINUTES [facility]OSP[facility] - 2 2 [facility] OUTPATIEN INC T OFFICE 75185 JUDD TOUSSAINTON ALL OUTPATIEN 2 2 MAYA T VISIT PLC 10 MINUTES [facility]OSP[facility] - 2 2 [facility] OUTPATIEN INC T OFFICE 76462 JUDD TOUSSAINTON ALL OUTPATIEN 2 2 MAY[facility] T VISIT PLC [address] - 2 2 JANE OUTPATIEN T MEDICALCE NTER OFFICE 96068 [facility] OUTPATIEN 2 2 JANE MAG T VISIT 25 PHYSICIAN MINUTES S OFFICE 51034 [facility] OUTPATIEN 2 2 PRIMARY T VISIT CARE 15 CENTER MINUTES EMERGENCY 62453 [facility] 2 2 [facility] DEPARTMEN INC T VISIT MODERATE SEVERITY [facility]OSP[facility] - 2 2 [facility] OUTPATIEN INC T EMERGENCY 15577 SURINDER BELTRAN 2 2 EMERGENCY GAUDENCIO DEPARTMEN SERVICES T VISIT HIGH/URGE NT SEVERITY OFFICE 17512 AWOSIKA AWOSIKA OUTPATIEN 2 2 HENRRY HENRRY T NEW 30 MINUTES OFFICE 44250 JUDD RISON ALL OUTPATIEN 2 2 E. MAYA T VISIT MDPLC 10 MINUTES OFFICE 44267 JUDD DAVENPORTER OUTPATIEN 2 2 E. MAYA BERENICE T VISIT [facility]PLC 10 MINUTES OFFICE 42805 JUDD RISON ALL OUTPATIEN 2 2 E. MAYA T VISIT [facility] 10 MINUTES OFFICE 83862 [facility] OUTPATIEN 2 2 PRIMARY T VISIT CARE 15 CENTER MINUTES OFFICE [address] [facility] OUTPATIEN 2 2 JANE MAG T VISIT 25 PHYSICIAN MINUTES S [facility]OSP[facility] - 2 2 [facility] OFFICE 68863 JUDD RISON ALL OUTPATIEN 2 2 E. MAYA T VISIT [facility] 10 MINUTES OFFICE 95558 JUDD RISON ALL OUTPATIEN 2 2 E. MAYA T VISIT [facility] 10 MINUTES OFFICE 45053 RISON ALL RISON ALL OUTPATIEN 2 2 T VISIT [address] [facility] OUTPATIEN 2 2 JANE MAG T VISIT 25 PHYSICIAN MINUTES S OFFICE 15754 FANNIE GRECO OUTPATIEN 2 2 DON DON T VISIT [address]ES [address] CONSULTAT 1 1 JANE ION NEW/ESTAB PHYSICIAN PATIENT S 60 MIN [facility] [address] [facility] [place] - [address] [facility] ALPHONSEVIE - 1 1 W [facility] OFFICE 77522 [facility] FANNIE OUTPATIEN 1 1 PRIMARY DON T VISIT CARE 25 CENTER MINUTES HOSPITAL [facility] - 1 1 [facility] OUTPATIEN [facility] T OFFICE 97130 [facility] CARMINA OUTPATIEN 1 1 PRIMARY WAD T VISIT CARE 25 CENTER MINUTES OFFICE 64342 JUDD RISON ALL OUTPATIEN 1 1 E. MAYA T VISIT MDPLC 15 MINUTES OFFICE 39716 [facility] AFTAB FROY OUTPATIEN 1 1 PRIMARY T VISIT CARE 25 CENTER MINUTES OFFICE 25710 [facility] ERROL RAHMAN OUTPATIEN 1 1 PRIMARY T VISIT CARE 40 CENTER MINUTES OFFICE 31706 JUDD RISON ALL OUTPATIEN 1 1 E. MAYA T VISIT [facility]PLC 10 MINUTES [facility]OSP[facility] 1 [facility] 1 [facility] OUTPATIEN [facility] T OFFICE 07978 [facility] CARMINA OUTPAT[facility]EN 1 1 PRIMARY WAD T VISIT CARE 25 CENTER MINUTES OFFICE 16863 JUDD HUBER OUTPATIEN 1 1 E. MAYA BERENICE T VISIT [facility] 10 MINUTES [facility] 1 [facility]PATIEN [facility] 1 OUTPATIEN [facility] - 1 OUTPATIEN [facility] OFFICE 38942 JUDD RISON ALL OUTPATIEN 1 1 E. MAYA T VISIT [facility] 15 MINUTES OFFICE 92683 JUDD RISON ALL OUTPATIEN 0 0 E. MAYA T VISIT [facility] 10 MINUTES OFFICE 93201 [facility] CARMINA OUTPATIEN 0 0 PRIMARY WAD T VISIT CARE 25 CENTER MINUTES OFFICE 94812 JUDD RISON ALL OUTPATIEN 0 0 E. MAYA T VISIT [facility] 10 MINUTES OFFICE 92137 [facility] CONSULTAT 0 0 PHYSICIAN FRANCISCO JAVIER OVIEDO NEW/ESTAB PATIENT 60 MIN [facility]OSPITAL [facility] - 0 0 [facility] OUTPATIEN INC T EMERGENCY 08785 [facility] 0 0 [facility] DEPARTMEN INC T VISIT LOW/MODER SEVERITY EMERGENCY 67720 SURINDER BARTON 0 0 EMERGENCY BERENICE DEPARTMEN SERVICES T VISIT HIGH/URGE NT SEVERITY [facility] 48048 KRIS MAYORGA 0 0 PRIMARY KENDALL M T VISIT CARE 10 CENTERINC MINUTES EMERGENCY [address] [facility] DEPT 0 0 HOSPITAL VISIT [place] HIGH SEVERITY& THREAT [facility] - [facility] 44845 BERT MAYORGAPATIEN 0 0 PRIMARY KNEDALL M T VISIT CARE 15 CENTERINC MINUTES OFFICE 10463 BERT CARSONPATIEN 0 0 E. ZULMA COLONAN T T NEW 30 MDPLC MINUTES OFFICE 15488 BERT GIANGPATIEN 0 0 PRIMARY SAM T VISIT CARE 15 CENTERINC MINUTES OFFICE 39103 CHERELLE VILLARREAL OUTPATIEN 0 0 MINOR Ziegler T NEW 45 MINUTES HOSPITAL [facility] - 0 0 [facility]
--- OUTSIDE RECORDS SUMMARY | 2017-04-04 20:18 | External Medical Summary Rpt ---
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 AGENT GREATER OCCIPITAL NRV RADIOLOGI 53573 [facility] ME[facility] C EXAM 1 W W CHEST 2 REGIONAL REGIONAL VIEWS MEDICAL MEDICAL FRONTAL&L ATERAL BLOOD 65580 [facility] COUNT 1 W W COMPLETE REGIONAL REGIONAL AUTO&AUTO MEDICAL MEDICAL DIFRNTL WBC ECG 63712 [facility] ROUTINE 1 W W ECG REGIONAL REGIONAL W/LEAST MEDICAL MEDICAL 12 LDS TRCG ONLY W/O I&R COMPREHEN 94244 ME[facility]IE MEADOWVIE SIVE 1 W W METABOLIC REGIONAL REGIONAL PANEL MEDICAL MEDICAL URNLS DIP 28847 ORQUIDEA NGOWVIE 1 W W STICK/TAB REGIONAL REGIONAL LET MEDICAL MEDICAL REAGENT AUTO MICROSCOP Y COLLECTIO 77295 [facility] HEARD N VENOUS 1 W W BLOOD REGIONAL [place] [address] ONEYDA LIU FANNIE TRANSVAGI 1 [facility]IMARY DON NAL CARE CENTER DXA BONE 03931 TABBY MCNAIR DENSITY 1 [facility] STUDY 1/> INC INC SITES AXIAL SKEL ANTINUCLE 93936 LABORATOR LABORATOR AR 1 Y & Y & ANTIBODIE BIODIAGNO BIODIAGNO S LUCIE STICS STICS SEDIMENTA 62617 LABORATOR LABORATOR TION RATE 1 Y & Y & RBC BIODIAGNO BIODIAGNO NON-AUTOM STICS STICS ATED COLLECTIO 38868 ONEYDA LIU CARMINA N VENOUS 1 PRIMARY WAD BLOOD CARE VENIPUNCT CENTER URE ANTISTREP 98589 LABORATOR LABORATOR TOLYSIN O 1 Y & Y & TITER BIODIAGNO BIODIAGNO STICS STICS RHEUMATOI 80368 LABORATOR LABORATOR D FACTOR 1 Y & Y & QUANTITAT BIODIAGNO BIODIAGNO ANUP STICS STICS DNA 37266 LABORATOR LABORATOR ANTIBODY 1 Y & Y & SHOSHONE-BANNOCK/DO BIODIAGNO BIODIAGNO UBLE STICS STICS STRANDED C-REACTIV 86170 LABORATOR LABORATOR E PROTEIN 1 Y & Y & BIODIAGNO BIODIAGNO STICS STICS IADNA 76668 LABORATOR LABORATOR CHLAMYDIA 1 Y & Y & BIODIAGNO BIODIAGNO TRACHOMAT STICS STICS IS AMPLIFIED PROBE TQ IADNA 60450 LABORATOR LABORATOR NEISSERIA 1 Y & Y & BIODIAGNO BIODIAGNO GONORRHOE STICS STICS AE AMPLIFIED PROBE TQ IADNA 01505 PATHOLOGY PATHOLOGY PAPILLOMA 1 & & VIRUS CYTOLOGY CYTOLOGY HUMAN LAB LAB AMPLIFIED PROBE TQ CYTP C/V 73800 LABORATOR LABORATOR AUTO THIN 1 Y & Y & LYR BIODIAGNO BIODIAGNO PREPJ SCR [place] [address] DANIELA GALEAS TRANSVAGI 1 MEDICAL [facility] NAL IMAGING ASS 3D 07494 DANIELA GALEAS RENDERING 1 MEDICAL [facility] IMAGING W/INTERP& ASS POSTPROC DIFF WORK STATION URINE 17222 TABBY MCNAIR 1 [facility] HOSP TEST INC [place] [address] DANIELA GALEAS ABDOMEN & 1 MEDICAL [facility] PELVIS IMAGING W/CONTRAS ASS T MATERIAL RADEX 51478 DANIELA GALEAS SPINE 1 [facility]ICAL [facility] CERVICAL IMAGING 4 OR 5 ASS VIEWS RADEX 70643 DANIELA GALEAS SPINE 1 MEDICAL [facility] LUMBOSACR IMAGING AL ASS MINIMUM 4 VIEWS RADEX 82445 TABBY MCNAIR SPINE 1 [facility]OS[facility] CERVICAL INC INC 6 OR MORE VIEWS COLLECTIO 50456 ONEYDA CO CARMINA N VENOUS 1 PRIMARY WAD BLOOD CARE VENIPUNCT CENTER URE URNLS DIP 98200 ONEYDA CO CARMINA 1 PRIMARY WAD STICK/TAB CARE LET RGNT CENTER AUTO W/O MICROSCOP Y BASIC 09993 LABORATOR LABORATOR METABOLIC 1 Y & Y & PANEL BIODIAGNO BIODIAGNO [place] [address] LABORATOR LABORATOR THYROID 1 Y & Y & STIMULATI BIODIAGNO BIODIAGNO NG STICS STICS HORMONE TSH BLOOD 75056 LABORATOR LABORATOR COUNT 1 Y & Y & COMPLETE BIODIAGNO BIODIAGNO AUTO&AUTO STICS STICS [place]IFRNTL WBC NJX 83312 JUDD RISON ALL DX/THER 1 ErikaAngie ZULMA AGT PVRT MDPLC FACET JT LMBR/SAC 1 LEVEL NJX 78916 JUDD RISON ALL DX/THER 1 John MAYA AGT PVRT MDPLC FACET JT LMBR/SAC 2ND LEVEL MODERATE 24848 JUDD RISON ALL SEDATJ 1 John MAYA SAME MDPLC PHYS/QHP 5/>YRS INIT 30 MIN THERAPEUT 77332 [facility]/> 1 TH AREAS [facility] E[facility] [place] EXERCISES DSTRJ 78099 JUDD RISON ALL NULYT 1 John MAYA PVRT MDPLC FACET JT NRV CRV/THRC EA LVL DSTRJ 08884 JUDD RISON ALL NULYT 1 E. ZULMA PVRT MDPLC FACET JT NRV CRV/THRC 1 LVL FLUOR 23181 JUDD RISON ALL NEEDLE/CA 1 E. MAYA TH MDPLC SPINE/PAR ASPINAL DX/THER ADDON THERAPEUT 12879 [facility]/> 1 TH AREAS [facility] [place] MIN EXERCISES THERAPEUT 35400 [facility] 1/> TH AREAS [facility] [place] EXERCISES THERAPEUT 01617 [facility] 1/> AREAS [facility] [place] EXERCISES THERAPEUT 66154 [facility] 1/> AREAS [facility] 15 [place] EXERCISES THERAPEUT 45820 [facility] PX 1/> AREAS [facility] [place] [place] EXERCISES THERAPEUT 06860 [facility] 1/> AREAS [facility] [place] [place] EXERCISES MODERATE 75501 JUDD RISON ALL SEDATJ 1 E. MAYA SAME MDPLC PHYS/QHP 5/>YRS INIT 30 MIN NJX 84638 JUDD RISON ALL DX/THER 1 E. MAYA AGT PVRT MDPLC FACET JT CRV/THRC 3+ LEVEL NJX 27753 JUDD RISON ALL DX/THER 1 E. MAYA AGT PVRT MDPLC FACET JT CRV/THRC 2ND LEVEL NJX 04799 JUDD RISON ALL DX/THER 1 E. MAYA AGT PVRT MDPLC FACET JT CRV/THRC 1 LEVEL THERAPEUT 72467 [facility]/> AREAS [facility] [place] [place] EXERCISES THERAPEUT 19501 [facility]/> 1 TH TH AREAS [facility] [place] [address] [facility]/> AREAS EACH 15 [facility] [place] TH[place] W/XERSS MANUAL 97831 [facility] THERAPY TQS 1/> [facility] [place] EACH [place] [address] [facility]/> AREAS EACH 15 [facility] [place] W/XERSS APPL 76775 [facility] MODALITY 1/> AREAS [facility] [place] MECHANICA L THERAPEUT 92903 [facility] PX /> AREAS [facility] [place] [address] [facility]/> AREAS EACH 15 [facility] [place] W/[place] [address] [facility]/> AREAS EACH 15 [facility] [place] W/XERSS APPL 92430 [facility] MODALITY /> AREAS [facility] [place] L THERAPEUT 87510 [facility] PX /> AREAS [facility] [place] EXERCISES THERAPEUT 36565 [facility] PX /> AREAS [facility] [place] [address] [facility]/> AREAS EACH 15 [facility] [place] W/XERSS MANUAL 76471 [facility] THERAPY TQS 1/> [facility] [place] EACH 15 MINUTES MODERATE 40046 JUDD RISON ALL SEDATJ 1 E. MAYA SAME MDPLC PHYS/QHP 5/>YRS INIT 30 MIN NJX 53012 JUDD RISON ALL DX/THER 1 E. ZULMA AGT PVRT MDPLC FACET JT CRV/THRC 3+ LEVEL NJX 01699 JUDD RISON ALL DX/THER 1 E. ZULMA AGT PVRT MDPLC FACET JT CRV/THRC 1 LEVEL NJX 12061 JUDD RISON ALL DX/THER 1 E. ZULMA AGT PVRT MDPLC FACET JT [place] [address] [facility]/> AREAS 1 EACH 15 [facility] [place] W/XERSS APPL 98130 [facility] MODALITY 1 /> AREAS [facility] [place] [address] [facility]/> AREAS 1 EACH 15 [facility] [place] TH[place] W/XERSS THERAPEUT 35948 [facility] 1/> AREAS [facility] EACH 15 [place] EXERCISES PHYSICAL 73966 [facility] TH[facility]APY EVALUATIO [facility] [place] 13925 JUDD RISON ALL DX/THER 0 E. ZULMA AGT PVRT MDPLC FACET JT CRV/THRC 3+ LEVEL NJX 64426 JUDD RISON ALL DX/THER 0 E. ZULMA AGT PVRT MDPLC FACET JT CRV/THRC 2ND LEVEL NJX 26601 JUDD RISON ALL DX/THER 0 E. ZULMA AGT PVRT MDPLC FACET JT CRV/THRC 1 LEVEL RADEX 26649 [facility] FOOT 0 [facility] COMPLETE INC INC MINIMUM 3 VIEWS RADEX 16780 TABBY IZAGUIRREON ANKLE 0 [facility] COMPLETE INC INC MINIMUM [place] [address] [facility]/> AREAS 0 EACH 15 [facility] [place] W/[place] [address] [facility]/> AREAS 0 TH TH EACH 15 [facility] [place] W/[place] [address] [facility]/> AREAS 0 TH TH EACH 15 [facility] [place] [address] [facility]/> AREAS 0 TH TH EACH 15 [facility] [place] W/XERSS DSTRJ 69775 JUDD RISON ALL NULYT 0 E. MAYA PVRT MDPLC FACET JT NRV LMBR/SAC EA LVL DSTRJ 33324 JUDD RISON ALL NULYT 0 E. MAYA PVRT MDPLC FACET JT NRV LMBR/SAC 1 LVL FLUOR 25863 JUDD RISON ALL NEEDLE/CA 0 E. MAYA TH MDPLC SPINE/PAR ASPINAL DX/THER ADDON PHYSICAL 45031 [facility] THERAPY 0 TH TH [facility] [place] DSTRJ 91019 JUDD RISON, NULYT 0 E. MAYA FAITH T PVRT MDPLC FACET JT NRV LMBR/SAC EA LVL FLUOR 56907 JUDD RISON, NEEDLE/CA 0 E. MAYA FAITH T TH MDPLC SPINE/PAR ASPINAL DX/THER ADDON DSTRJ 97823 JUDD RISON, NULYT 0 E. ZULMA FAITH T PVRT MDPLC FACET JT NRV LMBR/SAC 1 LVL NJX 59604 JUDD RISON, DX/THER 0 E. ZULMA FAITH T AGT PVRT MDPLC FACET JT LMBR/SAC 2ND LEVEL NJX 44115 JUDD RISON, DX/THER 0 E. MAYA FAITH T AGT PVRT MDPLC FACET JT LMBR/SAC 1 LEVEL ECG 11744 BRENTONBRENTON, ROUTINE 0 DEL A DEL A ECG W/LEAST 12 LDS I&R ONLY NJX 21166 JUDD FERGUSON, DX/THER 0 John Gardiner AGT PVRT MDPLC FACET JT LMBR/SAC 1 LEVEL RADIOLOGI 68355 [facility] C EXAM [address] [place] [address] CHEST 2 [facility] V[place]WS FRONTAL&[place] [address] JUDD FERGUSON, DX/THER 0 John Gardiner AGT PVRT MDPLC FACET JT LMBR/SAC 2ND LEVEL NJX 52516 JUDD FERGUSON, DX/THER 0 EAngie Gardiner AGT PVRT MDPLC FACET JT LMBR/SAC 3+ [place] [address] [facility] TROPONIN [address] [place] [address] QUANTITAT [facility] ANUP BLOOD 40877 [facility] COUNT [address] [place] [address] COMPLETE [facility] AUTO&AUTO DIFRNTL WBC BASIC 76678 [facility] METABOLIC [address] [place] [address] PANEL [facility] CALCIUM TOTAL ECG 80182 [facility] ROUTINE [address] [place] [address] ECG [facility] W/LEAST 12 LDS TRCG ONLY W/O I&R DSTR 01096 JUDD TOUSSAINTON, NULYT 0 John Gardiner PVRT MDPLC FACET JT NRV CRV/THRC 1 LVL DSTRJ 25349 JUDD TOUSSAINTON, NULYT 0 John Gardiner PVRT MDPLC FACET JT NRV CRV/THRC EA LVL FLUOR 82233 JUDD FERGUSON, NEEDLE/CA 0 John Gardiner TH MDPLC SPINE/PAR ASPINAL DX/[place] [address] LABORATOR LABORATOR THYROID 0 Y & Y & STIMULATI BIODIAGNO BIODIAGNO NG STICS STICS HORMONE TSH BLOOD 35353 LABORATOR LABORATOR COUNT 0 Y & Y & COMPLETE BIODIAGNO BIODIAGNO AUTO&AUTO STICS STICS DIFRNTL WBC HEPATIC 70806 LABORATOR LABORATOR FUNCTION 0 Y & Y & PANEL BIODIAGNO BIODIAGNO STICS STICS HEMOGLOBI 31711 LABORATOR LABORATOR N 0 Y & Y & GLYCOSYLA BIODIAGNO BIODIAGNO MASSIMO A1C STICS STICS COLLECTIO 88201 ONEYDA LIU CARMINA, N VENOUS 0 PRIMARY [facility] M BLOOD CARE VENIPUNCT CENTERINC URE BASIC 85219 LABORATOR LABORATOR METABOLIC 0 Y & Y & PANEL BIODIAGNO BIODIAGNO CALCIUM STICS STICS TOTAL LIPOPROTE 89196 LABORATOR LABORATOR IN BLOOD 0 Y & Y & EDUARDO BIODIAGNO BIODIAGNO NUMBERS & STICS STICS SUBCLASSE S DSTRJ 35378 JUDD TOUSSAINTON, NULYT 0 E. ZULMA Gardiner PVRT MDPLC FACET JT NRV CRV/THRC EA LVL DSTRJ 65240 JUDD RISON, NULYT 0 E. ZULMA Gardiner PVRT MDPLC FACET JT NRV CRV/THRC 1 LVL FLUOR 14253 JUDD TOUSSAINTON, NEEDLE/CA 0 E. ZULMA Gardiner TH MDPLC SPINE/PAR ASP[place]AL DX/[place] [address] JUDD RISON, DX/THER 0 E. ZULMA Gardiner AGT PVRT MDPLC FACET JT CRV/THRC 2ND LEVEL NJX 47421 JUDD RISON, DX/THER 0 E. ZULMA Gardiner AGT PVRT MDPLC FACET JT CRV/THRC 1 LEVEL NJX 48861 JUDD RISON, DX/THER 0 E. ZULMA Gardiner AGT PVRT MDPLC FACET JT CRV/THRC 3+ LEVEL NJX 39686 JUDD RISON, DX/THER 0 E. ZULMA Gardiner AGT PVRT MDPLC FACET JT CRV/THRC 3+ LEVEL NJX 71229 JUDD RISON, DX/THER 0 E. ZULMA Gardiner AGT PVRT MDPLC FACET JT CRV/THRC 1 LEVEL NJX 05574 JUDD RISON, DX/THER 0 E. ZULMA Gardiner AGT PVRT MDPLC FACET JT CRV/THRC 2ND LEVEL BLOOD 92606 ONEYDA UGALDE, COUNT 0 PRIMARY SAM HEMOGLOBI CARE N CENTERINC COLLECTIO 43081 ONEYDA UGALDE, N 0 PRIMARY SAM CAPILLARY CARE BLOOD CENTERINC SPECIMEN 3D 55281 [facility] C ADAL, RENDERING 0 ADAL GETAC[facility]W W/INTERP & [place] [address]365 [facility] C ADAL, SPINAL 0 ADAL GET[facility] CANAL LUMBAR W/O CONTRAST MATERIAL MRI 55093 [facility] C ADAL, SPINAL 0 ADAL GET[facility] CANAL CERVICAL W/[place]X 64684 CHERELLE VILLARREAL, DX/THER 0 MINOR Ziegler AGT PVRT FACET JT CRV/THRC 2ND LEVEL NJX 05578 CHERELLE VILLARREAL, DX/THER 0 MINOR Ziegler AGT PVRT FACET JT CRV/THRC 1 LEVEL NJX 50690 CHERELLE VILLARREAL, DX/THER 0 MINOR Ziegler AGT PVRT FACET JT CRV/THRC 3+ LEVEL GONADOTRO 03391 OR[facility] HEARD PIN 0 W W [facility] CENTER CENTER ANUP COLLECTIO 71903 ORQU[facility] HEARD N VENOUS 0 W W [facility] S[facility]EN[facility] 82123 DAYSI BAILEY, [address] MAMMOGRAP RADIOLOGY HY BILATERAL ASSOCIATE S PSC IADNA 63911 [facility] 0 [facility] TRACHOMAT IS AMPLIFIED PROBE TQ CYTP 15853 [facility] CERV/VAG 0 [facility] AUTO THIN LAYER PREP MNL SCREEN IADNA 18014 [facility] [place] 0 [facility] INC GONORRHOE AE AMPLIFIED PROBE TQ DETERMINA 10501 LAURA SANCHEZ, TION 0 PUJA LUO REFRACTIV E STATE FUNDUS 99323 LAURA SANCHEZ, PHOTOGRAP 0 PUJA LUO HY W/INTERPR ETATION & REPORT OPHTH 60781 LAURA SANCHEZ, MEDICAL 0 PUJA LUO XM&EVAL COMPRE NEW PT 1/> VST APPLICATI 93.54 M. Leo ON OF Mick DIAZ SPLINT Encounters Encounter Start End Date Code Location Performer Type Date [facility] - 7 7 [facility] 24142 [facility] 6 6 [place] PHYSICIAN NEW/ESTAB S ASSIST PATIENT 40 MIN HOSPITAL [facility] - 6 6 [facility] OFFICE 52641 [facility] 6 6 [place] PHYSIC[place] NEW/ESTAB S ASSIST PATIENT 40 MIN HOSPITAL MEAWVIE - 6 6 W [facility] T MEDICAL EMERGENCY 33137 [facility] DEPT 6 6 JACOB CHR VISIT EMERGENCY HIGH PHYS SEVERITY& THREAT [facility] - 6 6 Y [facility] T OFFICE 79690 [facility] 6 MEDICAL TONI T VISIT SERV 25 FOUNDATIO MINUTES N OFFICE 21913 [facility] 6 6 Y T VISIT 5 HOSPITAL MINUTES OFFICE 04787 [facility] 6 6 W KATHY T VISIT 5 PHYSICIAN MINUTES [facility] - 6 6 Y [facility] T OFFICE 06174 [place] [facility] 5 MEDICAL TONI T VISIT SERV 25 FOUNDATIO MINUTES N OFFICE 34397 [facility] 5 5 Y T VISIT 5 [facility] UNIVERSIT - 5 5 Y [facility] UNIVERSIT - 5 5 Y [facility] T OFFICE 20757 [place] [facility] CONS[facility] 5 5 MEDICAL TONI ION SERV NEW/ESTAB FOUNDATIO PATIENT N 60 MIN OFFICE 90883 [facility] 5 5 Y T VISIT 5 [facility] CAPRIWSONY - 4 4 W OUTPATIEN REGIONAL T MEDICAL OFFICE 61391 MEADOWVIE ALO OUTPATIEN 4 4 W KATHY T VISIT PHYSICIAN 25 PRACTIC MINUTES OFFICE 23780 A C FIELD AMB OUTPATIEN 4 4 RONALDO DIAZ T VISIT PSC 15 MINUTES OFFICE 79985 MEADOWSONY ALO OUTPATIEN 4 4 W KATHY T VISIT PHYSICIAN 15 PRACTIC MINUTES OFFICE 19020 MEADOWVIE ALO OUTPATIEN 4 4 W KATHY T VISIT PHYSICIAN 15 PRACTIC MINUTES OFFICE 90506 FIELD AMB FIELD AMB OUTPATIEN 4 4 T VISIT 15 MINUTES OFFICE 60460 FIELD AMB FIELD AMB OUTPATIEN 4 4 T VISIT 15 MINUTES OFFICE 71141 FIELD AMB FIELD AMB OUTPATIEN 4 4 T NEW 30 MINUTES OFFICE 46813 SOFIYA ARRIAZA OUTPATIEN 3 3 JAM JAM T VISIT 25 MINUTES OFFICE 16790 WINIARSKA WINIARSKA OUTPATIEN 3 3 MAG MAG T VISIT 25 MINUTES OFFICE 60497 SOFIYA OUTPATIEN 3 3 JAM T VISIT 25 MINUTES OFFICE 95852 ZULMA MAYA OUTPATIEN 3 3 STEPHANIE STEPHANIE T VISIT 5 MINUTES OFFICE [address] [facility] PETTEY OUTPATIEN 3 3 PHYSICIAN JAM T VISIT S GROUP 15 MINUTES OFFICE 14912 [facility] [place] CONSULTAT 3 3 PSC LEI ION NEW/ESTAB PATIENT 40 MIN OFFICE 44579 JUDD HUBER OUTPATIEN 3 3 John MAYA BERENICE T VISIT 5 MDPLC MINUTES OFFICE 94141 ONEYDA ARRIAZA OUTPATIEN 3 3 PRIMARY JAM T VISIT CARE 25 CENTER MINUTES OFFICE 69969 JUDD MAYA OUTPATIEN 3 3 ZULMA STEPHANIE T VISIT 5 MD PLC MINUTES OFFICE [address] [facility] PETTEY OUTPATIEN 3 3 PHYSICIAN JAM T VISIT S GROUP 15 MINUTES HOSPITAL TABBY - 3 3 [facility] OUTPATIEN INC T OFFICE [address] [facility] DEN[facility] OUTPATIEN 3 3 JANE MAG T VISIT 25 PHYSICIAN MINUTES S OFFICE [address] [facility]TE[facility] OUTPATIEN 3 3 PHYSICIAN JAM T NEW 30 S GROUP MINUTES Emergency KELLY Barton MD (ER) 3 19:39 3 21:14 [facility] TABBY - 3 3 [facility] OUTPATIEN INC T EMERGENCY 33236 SURINDER BARTON 3 3 EMERGENCY BERENICE DEPARTMEN SERVICES T VISIT HIGH/URGE NT SEVERITY EMERGENCY 14619 TABBY 3 3 [facility] DEPARTMEN INC T VISIT MODERATE SEVERITY OFFICE 06270 JUDD FERGUSON ALL OUTPATIEN 3 3 MAYA T VISIT 5 PLC MINUTES OFFICE 17164 JUDD FERGUSON ALL OUTPATIEN 3 3 MAYA T VISIT 5 PLC MINUTES OFFICE 22960 JUDD HUBER OUTPATIEN 3 3 E. MAYA BERENICE T VISIT MDPLC 10 MINUTES OFFICE 79199 ONE[facility]DA CO OUTPATIEN 3 3 PRIMARY T VISIT CARE 15 CENTER MIN[address] OFFICE [address] JOLYNN OUTPATIEN 3 3 JANE MAG T VISIT 25 PHYSICIAN MINUTES S OFFICE 13073 JUDD HUBER OUTPATIEN 3 3 MAYA BERENICE T VISIT PLC 10 MINUTES PERIODIC 52850 ONE[facility] CO PREVENTIV 3 3 PRIMARY E MED EST CARE PATIENT CENTER 40-64YRS OFFICE 37692 ONEYDA CO OUTPATIEN 3 3 PRIMARY T VISIT CARE 15 CENTER [facility] TABBY - 2 2 [facility] OUTPATIEN INC T OFFICE 52425 JUDD TOUSSAINTON ALL OUTPATIEN 2 2 E. MAYA T VISIT MDPLC 10 MINUTES OFFICE 23255 ONEY[facility] CO OUTPATIEN 2 2 PRIMARY T VISIT CARE 15 CENTER MINUTES OFFICE 74591 ONE[facility] CO OUTPATIEN 2 2 PRIMARY T VISIT CARE 15 CENTER MINUTES OFFICE 82293 JUDD MAYA OUTPATIEN 2 2 E. MAYA STEPHANIE T V[facility]IT [facility] 15 MINUTES OFFICE 97652 [facility] OUTPATIEN 2 2 JANE MAG T VISIT 25 PHYSICIAN MINUTES S OFFICE 97244 JUDD RISON ALL OUTPATIEN 2 2 [facility]. [facility] 10 MINUTES OFFICE 98953 [facility]D [facility] OUTPATI[facility] 2 2 [facility] 10 [facility]UTES [facility] - [facility] 2 [facility] T OFFICE 12356 JUDD [facility] OUTPATI[facility] 2 2 [facility] 10 [facility]ES [facility] - 2 2 [facility] T OFFICE 07566 [facility] OUTPATI[facility] 2 2 [facility] [address] - 2 2 JANE OUTPATIEN T MEDICALCE NTER OFFICE 08355 [facility] OUTPATIEN 2 2 JANE MAG T VISIT 25 PHYSICIAN MINUTES S OFFICE 64919 [facility] 2 2 PRIMARY T VISIT CARE 15 CENTER MINUTES EMERGENCY 01221 [facility] 2 2 [facility] DEPARTMEN [facility] T VISIT MODERATE SEVERITY [facility] - [facility] 2 [facility] T EMERGENCY 97948 SURINDER BELTRAN 2 2 EMERGENCY GAUDENCIO DEPARTMEN SERVICES T VISIT HIGH/URGE NT SEVERITY OFFICE 69284 AWOSIKA AWOSIKA OUTPATIEN 2 2 HENRRY HENRRY T NEW 30 MINUTES OFFICE 21658 JUDD RISON ALL OUTPATIEN 2 2 [facility] T [facility] 10 MINUTES OFFICE 97701 JUDD DAVENPORTER OUTPATIEN 2 2 [facility] BERENICE T VISIT [facility] 10 MINUTES OFFICE 17338 JUDD R[facility] ALL OUTPATIEN 2 2 [facility] 10 MINUTES OFFICE 51229 [facility] 2 2 PRIMARY T VISIT CARE 15 CENTER MIN[facility] OFFICE [address] [facility] OUTPATIEN 2 2 JANE MAG T VISIT 25 PHYSICIAN MINUTES S [facility] - 2 2 [facility] MEDICAL OFFICE 38366 JUDD RISON ALL OUTPATIEN 2 2 [facility]. [facility] T [facility] 10 MINUTES OFFICE 68385 JUDD RISON ALL OUTPATIEN 2 2 [facility]. [facility] T [facility] 10 MINUTES OFFICE 58711 RISON ALL RISON ALL OUTPATIEN 2 2 T VISIT [address] [facility] OUTPATIEN 2 2 JANE MAG T VISIT 25 PHYSICIAN MINUTES S OFFICE 21183 FANNIE GRECO OUTPATIEN 2 2 DON DON T VISIT [address]ES [address] [facility] 1 1 JANE ION NEW/ESTAB PHYSICIAN PATIENT S 60 MIN [facility] 1 [facility] - 1 1 [facility] ALPHONSEVIE [facility] 1 1 [facility] MEDICAL OFFICE 38110 [facility] FANNIE OUTPATIEN 1 1 PRIMARY DON T VISIT CARE 25 CENTER MINUTES HOSPITAL [facility] - 1 1 [facility] OUTPATIEN [facility] T OFFICE 20278 [facility] CARMINA OUTPAT[facility]EN 1 1 PRIMARY WAD T VISIT CARE 25 CENTER MINUTES OFFICE 47189 JUDD RISON ALL OUTPATIEN 1 1 E. [facility] T [facility] 15 MINUTES OFFICE 73248 [facility] AFTAB FROY OUTPATIEN 1 1 PRIMARY T VISIT CARE 25 CENTER MINUTES OFFICE 60640 [facility] ERROL RAHMAN OUTPATIEN 1 1 PRIMARY T VISIT CARE 40 CENTER MINUTES OFFICE 08448 JUDD RISON ALL OUTPATIEN 1 1 [facility] T [facility] 10 MINUTES [facility] OUTPATIEN [facility] T OFFICE 57353 [facility] OUTPAT[facility]EN 1 1 PRIMARY WAD T VISIT CARE 25 CENTER MINUTES OFFICE 85839 JUDD HUBER OUTPATIEN 1 1 [facility]. [facility] EBRENICE T VISIT [facility] 10 MINUTES [facility]EN [facility] OUTPATIEN [facility] 1 OUTPATIEN [facility] OFFICE 60199 JUDD RISON ALL OUTPATIEN 1 1 [facility]. [facility] T [facility] 15 MINUTES OFFICE 23590 JUDD RISON ALL OUTPATIEN 0 0 [facility]. [facility] T [facility] 10 MINUTES OFFICE 04213 [facility] OUTPATIEN 0 0 PRIMARY WAD T VISIT CARE 25 CENTER MINUTES OFFICE 28207 JUDD RISON ALL OUTPATIEN 0 0 [facility]. [facility] T [facility] 10 MINUTES OFFICE [address] [facility] PETTEY CONSULTAT 0 0 PHYSICIAN FRANCISCO JAVIER OVIEDO NEW/ESTAB PATIENT 60 MIN [facility] - [facility] 0 [facility] T EMERGENCY 13009 [facility] 0 0 [facility] DEPARTMEN INC T VISIT LOW/MODER SEVERITY EMERGENCY 57597 SURINDER BARTON 0 0 EMERGENCY BERENICE DEPARTMEN SERVICES T VISIT HIGH/URGE NT SEVERITY [facility] 28485 KRIS [place] 0 0 [facility] MIN[facility] [id number] [facility] DEPT 0 0 HOSPITAL VISIT RYDE HIGH SEVERITY& THREAT [facility] - [facility] [id number] BERT MAYORGAPATIEN 0 0 PRIMARY [facility] M T [facility] MINUTES OFFICE [id number] BERT CARSONPATIEN 0 0 E. ZULMA COLONAN T T NEW 30 [facility] MINUTES OFFICE [id number] BERT GIANGPATIEN 0 0 PRIMARY SAM T VISIT CARE 15 [facility]ENTER[facility] MINUTES OFFICE 53683 CHERELLE VILLARREAL OUTPATIEN 0 0 MINOR [facility]iegler T NEW 45 MINUTES [facility] - 0 0 [facility]
--- OUTSIDE RECORDS SUMMARY | 2017-04-04 20:24 | External Medical Summary Rpt ---
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 MEDICALCE MEDICALCE ANTIGEN NTER NTER HEPATITIS 71696 [facility] C 1 JANE JANE ANTIBODY MEDICALCE MEDICALCE NTER NTER RHEUMATOI 65325 [facility] D FACTOR 1 JANE LARA QUALITATI VE MEDICALCE MEDICALCE NTER NTER SEDIMENTA 91296 [facility] TION RATE 1 JANE LARA RBC AUTOMATED MEDICALCE MEDICALCE NTER NTER RADIOLOGI 28403 [facility] 1 JANE MAG EXAMINATI ON KNEE 3 PHYSICIAN VIEWS S RADEX 19957 [facility] FOOT 1 JANE MAG COMPLETE MINIMUM 3 PHYSICIAN VIEWS S C-REACTIV 64610 [facility] E PROTEIN 1 JANEJOCELYN LARA MEDICALCE MEDICALCE NTER NTER RADEX 01224 [facility] HAND 1 JANE MAG MINIMUM 3 VIEWS PHYSICIAN S COLLECTIO 99357 [facility] N VENOUS 1 JANE DUNLAPTH BLOOD VENIPUNCT MEDICALCE MEDICALCE URE NTER NTER GENERAL 66575 [facility] JANE LARA PANEL MEDICALCE MEDICALCE NTER NTER COLLECTIO 63494 MEADOWVIE MEADOWVIE N VENOUS 1 W W BLOOD REGIONAL REGIONAL VENIPUNCT MEDICAL MEDICAL URE COMPREHEN 87091 MEADOWVIE MEADOWVIE SIVE 1 W W METABOLIC REGIONAL REGIONAL PANEL MEDICAL MEDICAL LOCM Q9967 MEADOWVIE MEADOWVIE [phone] 1 W W MG/ML REGIONAL REGIONAL IODINE MEDICAL MEDICAL CONCENTRA TION PER ML CT THORAX 77565 MEADOWVIE MEADOWVIE 1 W W W/CONTRAS REGIONAL REGIONAL T MEDICAL MEDICAL MATERIAL 3D 81272 LEO BAILEY RENDERING 1 CADE CADE W/INTERP & POSTPROCE SS SUPERVISI ON LAPAROSCO 54770 ONEYDA GRECO PY W 1 PRIMARY DON TOTAL CARE HYSTERECT CENTER PATIENCE UTERUS 250 GM/< LEVEL V 82253 AMERIPATH AMERIPATH SURG 1 [facility] PATHOLOGY INC INC GROSS&BERENICE ROSCOPIC EXAM ANESTHESI 76477 DANIELE SANABRIA A 1 CADE MOHAMUD INTRAPERI TONEAL LOWER ABD W/LAPS NOS RADIOLOGI 72396 GIL CORDERO C EXAM 1 LUMA LUMA CHEST 2 VIEWS FRONTAL&L ATERAL INJECTION 26163 RISON ALL RISON ALL 1 ANESTHETI C [facility] NRV RADIOLOGI [address] EXAM 1 LUMA LUMA CHEST 2 VIEWS FRONTAL&L ATERAL COLLECTIO 19275 ORQUIDEA FAROOQWSONY N VENOUS 1 W W BLOOD REGIONAL REGIONAL VENIPUNCT MEDICAL MEDICAL URE ECG 44033 MEADOWSONY MEAWVIE ROUTINE 1 W W ECG REGIONAL REGIONAL W/LEAST MEDICAL MEDICAL 12 LDS TRCG ONLY W/O I&R URNLS DIP 84979 MEADOWVIE MEADOWVIE 1 W W STICK/TAB REGIONAL REGIONAL LET MEDICAL MEDICAL REAGENT AUTO MICROSCOP Y COMPREHEN 25364 MEADOWSONY MEADOWVIE SIVE 1 W W METABOLIC REGIONAL REGIONAL PANEL MEDICAL MEDICAL BLOOD 53042 MEADOWSONY MEADOWVIE COUNT 1 W W COMPLETE REGIONAL REGIONAL AUTO&[place] [address] ONEYDA GRECO TRANSVAGI 1 PRIMARY DON NAL CARE CENTER DXA BONE 63368 [place] ADAL DENSITY 1 MEDICAL GEOVANI STUDY 1/> IMAGING SITES ASS AXIAL SKEL DNA 99547 LABORATOR LABORATOR ANTIBODY 1 Y & Y & MUCKLESHOOT/DO BIODIAGNO BIODIAGNO UBLE STICS STICS STRANDED C-REACTIV 84132 LABORATOR LABORATOR E PROTEIN 1 Y & Y & BIODIAGNO BIODIAGNO STICS STICS SEDIMENTA 07922 LABORATOR LABORATOR TION RATE 1 Y & Y & RBC BIODIAGNO BIODIAGNO NON-AUTOM STICS STICS ATED ANTISTREP 18805 LABORATOR LABORATOR TOLYSIN O 1 Y & Y & TITER BIODIAGNO BIODIAGNO STICS STICS RHEUMATOI 22080 LABORATOR LABORATOR D FACTOR 1 Y & Y & QUANTITAT BIODIAGNO BIODIAGNO ANUP STICS STICS ANTINUCLE 57551 LABORATOR LABORATOR AR 1 Y & Y & ANTIBODIE BIODIAGNO BIODIAGNO S LUCIE STICS STICS COLLECTIO 36523 ONEYDA LIU CARMINA N VENOUS 1 PRIMARY WAD BLOOD CARE VENIPUNCT CENTER URE IADNA 27878 LABORATOR LABORATOR CHLAMYDIA 1 Y & Y & BIODIAGNO BIODIAGNO TRACHOMAT STICS STICS IS AMPLIFIED PROBE TQ IADNA 55104 PATHOLOGY PATHOLOGY PAPILLOMA 1 & & VIRUS CYTOLOGY CYTOLOGY HUMAN LAB LAB AMPLIFIED PROBE TQ CYTP C/V 66982 LABORATOR LABORATOR AUTO THIN 1 Y & Y & LYR BIODIAGNO BIODIAGNO PREPJ SCR STICS STICS MNL RESCR PHYS IADNA 66266 LABORATOR LABORATOR NEISSERIA 1 Y & Y & BIODIAGNO BIODIAGNO GONORRHOE STICS STICS [place] AM[place]Q 81766 [place] ADAL TRANSVAGI 1 [place] [address] [place] ADAL ABDOMEN & 1 MEDICAL GEOVANI PELVIS IMAGING W/CONTRAS ASS T MATERIAL 3D 56148 [place] ADAL RENDERING 1 MEDICAL GEOVANI IMAGING W/INTERP& ASS POSTPROC DIFF WORK STATION URINE 27088 [facility]IR 1 [facility] TEST INC INC VISUAL COLOR CMPRSN METHS RADEX 52998 [place] ADAL SPINE 1 MEDICAL GEOVANI LUMBOSACR IMAGING AL ASS MINIMUM 4 VIEWS RADEX 17903 [place] ADAL SPINE 1 MEDICAL GEOVANI CERVICAL IMAGING 4 OR 5 ASS VIEWS RADEX 50190 TAB[facility] MCNAIR SPINE 1 [facility] CERVICAL INC INC 6 OR MORE VIEWS COLLECTIO 66793 ONEYDA CO CARMINA N VENOUS 1 PRIMARY WAD BLOOD CARE VENIPUNCT CENTER URE URNLS DIP 09369 ONEYDA CO CARMINA 1 PRIMARY WAD STICK/TAB CARE LET RGNT CENTER AUTO W/O MICROSCOP Y BLOOD 60777 LABORATOR LABORATOR COUNT 1 Y & Y & COMPLETE BIODIAGNO BIODIAGNO AUTO&AUTO [place] [address] LABORATOR LABORATOR THYROID 1 Y & Y & STIMULATI BIODIAGNO BIODIAGNO NG STICS STICS HORMONE TSH BASIC 62047 LABORATOR LABORATOR METABOLIC 1 Y & Y & PANEL BIODIAGNO BIODIAGNO CALCIUM STICS STICS TOTAL NJX 58944 JUDD RISON ALL DX/THER 1 E. ZULMA AGT PVRT MDPLC FACET JT LMBR/SAC 1 LEVEL NJX 57980 JUDD RISON ALL DX/THER 1 E. ZULMA AGT PVRT MDPLC FACET JT LMBR/SAC 2ND LEVEL MODERATE 32151 JUDD RISON ALL SEDATJ 1 E. ZULMA SAME MDPLC PHYS/QHP 5/>YRS INIT 30 MIN THERAPEUT 98212 [facility]/> 1 TH [facility] [place] [place] EXERCISES FLUOR 14196 JUDD RISON ALL NEEDLE/CA 1 E. MAYA TH MDPLC SPINE/PAR ASPINAL DX/THER ADDON DSTRJ 99631 JUDD RISON ALL NULYT 1 E. ZULMA PVRT MDPLC FACET JT NRV CRV/THRC EA LVL DSTRJ 04144 JUDD RISON ALL NULYT 1 E. ZULMA PVRT MDPLC FACET JT NRV CRV/THRC 1 LVL THERAPEUT 66526 [facility] P[facility] 1/> 1 TH AREAS [facility] [place] EXERCISES THERAPEUT 51459 [facility] 1/> 1 AREAS [facility] [place] EXERCISES THERAPEUT 07523 [facility] 1/> 1 AREAS [facility] [place] EXERCISES THERAPEUT 82877 [facility] 1/> 1 AREAS [facility] [place] EXERCISES THERAPEUT 98994 [facility] 1/> 1 AREAS [facility] [place]ERCISES THERAPEUT 24614 [facility] 1/> 1 TH AREAS [facility] [place] EXERCISES MODERATE 48157 JUDD RISON ALL SEDATJ 1 E. ZULMA SAME MDPLC PHYS/QHP 5/>YRS INIT 30 MIN NJX 28428 JUDD RISON ALL DX/THER 1 E. ZULMA AGT PVRT MDPLC FACET JT CRV/THRC 2ND LEVEL NJX 34252 JUDD RISON ALL DX/THER 1 E. ZULMA AGT PVRT MDPLC FACET JT CRV/THRC 1 LEVEL NJX 36765 JUDD RISON ALL DX/THER 1 EAngie MAYA AGT PVRT MDPLC FACET JT CRV/THRC 3+ LEVEL THERAPEUT 25753 [facility] P[facility] 1/> AREAS [facility] [place] EXERCISES THERAPEUT 65982 [facility] PX /> AREAS [facility] [place] EXERCISES MANUAL 84412 [facility] THERAPY TQS 1/> [facility] [address] [facility] 1/> AREAS EACH 15 [facility] [place] TH[place] W/[place] [address] [facility] 1/> AREAS EACH 15 [facility] [place] W/XERSS APPL 01780 [facility] MODALITY 1/> AREAS [facility] [place] MECHANICA L THERAPEUT 35206 [facility] PX / AREAS [facility] [place] [address] [facility] 1/> AREAS EACH 15 [facility] [place] W/[place] [address] [facility] 1/> AREAS EACH 15 [facility] [place] W/XERSS APPL 14809 [facility] MODALITY 1/> AREAS [facility] [place] L THERAPEUT 06705 [facility] PX 1/> AREAS [facility] [place] EXERCISES MANUAL 38581 [facility] THERAPY TQS /> [facility] [place] 15 MINUTES THERAPEUT 60908 [facility] PX /> [facility] [place] [address] [facility] 1/> AREAS EACH 15 [facility] [place] W/XERSS NJX 27817 JUDD RISON ALL DX/THER 1 E. ZULMA AGT PVRT MDPLC FACET JT CRV/THRC 2ND LEVEL MODERATE 45258 JUDD RISON ALL SEDATJ 1 E. ZULMA SAME MDPLC PHYS/QHP 5/>YRS INIT 30 MIN NJX 97222 JUDD RISON ALL DX/THER 1 E. ZULMA AGT PVRT MDPLC FACET JT CRV/THRC 3+ LEVEL NJX 42234 JUDD RISON ALL DX/THER 1 E. ZULMA AGT PVRT MDPLC FACET JT CRV/THRC 1 LEVEL APPL 60286 [facility] MODALITY 1/> AREAS [facility] [place] [address] [facility] 1/> AREAS EACH 15 [facility] [place] W/[place] [address] [facility] 1/> AREAS EACH 15 [facility] [place] W/XERSS THERAPEUT 33041 [facility] PX /> [facility] [place] EXERCISES PHYSICAL 76568 [facility] THERAPY EVALUATIO [facility] [place] NJX 43671 JUDD RISON ALL DX/THER 0 E. ZULMA AGT PVRT MDPLC FACET JT CRV/THRC 2ND LEVEL NJX 02975 JUDD RISON ALL DX/THER 0 E. ZULMA AGT PVRT MDPLC FACET JT CRV/THRC 1 LEVEL NJX 71026 JUDD RISON ALL DX/THER 0 E. ZULMA AGT PVRT MDPLC FACET JT CRV/THRC 3+ LEVEL RADEX 37510 [place] AMBER ANKLE 0 MEDICAL LITZY COMPLETE IMAGING MINIMUM 3 ASS VIEWS RADEX 47612 [place] AMBER FOOT 0 MEDICAL LITZY COMPLETE IMAGING MINIMUM [place] [address] [facility] 1/> AREAS 0 TH TH EACH 15 [facility] [place] W/[place] [address] [facility] 1/> AREAS 0 TH TH EACH 15 [facility] [place] [address] [facility] 1/> AREAS 0 TH TH EACH 15 [facility] [place] [address] [facility] 1/> AREAS 0 TH TH EACH 15 [facility] [place] W/XERSS FLUOR 04578 JUDD RISON ALL NEEDLE/CA 0 E. MAYA TH MDPLC SPINE/PAR ASPINAL DX/THER ADDON DSTRJ 23739 JUDD RISON ALL NULYT 0 E. ZULMA PVRT MDPLC FACET JT NRV LMBR/SAC EA LVL DSTRJ 37878 JUDD RISON ALL NULYT 0 E. ZULMA PVRT MDPLC FACET JT NRV LMBR/SAC 1 LVL PHYSICAL 77522 [facility] THERAP[facility] 0 TH TH [facility] [place] FLUOR 44756 JUDD RISON, NEEDLE/CA 0 E. ZULMA COLONAN T TH MDPLC SPINE/PAR ASPINAL DX/THER ADDON DSTRJ 89988 JUDD RISON, NULYT 0 E. ZULMA COLONAN T PVRT MDPLC FACET JT NRV LMBR/SAC 1 LVL DSTRJ 37075 JUDD TOUSSAINTON, NULYT 0 Erika. ZULMA Gardiner PVRT MDPLC FACET JT NRV LMBR/SAC [place] LVL NJX 85032 JUDD TOUSSAINTON, DX/THER 0 John Gardiner AGT PVRT MDPLC FACET JT LMBR/SAC 1 LEVEL NJX 96069 JUDD RISON, DX/THER 0 Erika. ZULMA Gardiner AGT PVRT MDPLC FACET JT LMBR/SAC 2ND LEVEL ECG 10413 BRENTON FARRIS, ROUTINE 0 DEL A DEL A ECG W/LEAST 12 LDS I&R ONLY NJX 68941 JUDD TOUSSAINTON, DX/THER 0 E. ZULMA Gardiner AGT PVRT MDPLC FACET JT LMBR/SAC 2ND LEVEL NJX 96624 JUDD TOUSSAINTON, DX/THER 0 John Gardiner AGT PVRT MDPLC FACET JT LMBR/SAC [address] BASIC [address] [facility] METABOLIC [address] [place] [address] PANEL [facility] [place] [address] [facility] TROPONIN [address] [place] [address] QUANTITAT [facility] ANUP BLOOD [address] [facility] COUNT [address] [place] [address] COMPLETE [facility] AUTO&AUTO [place]IFRNTL WBC NJX 88884 JUDD TOUSSAINTON, DX/THER 0 John Gardiner AGT PVRT MDPLC FACET JT LMBR/SAC 3+ LEVEL RADIOLOGI [address] [facility] C EXAM [address] [place] [address] CHEST 2 [facility] VIEWS FRONTAL&L ATERAL ECG [address] [facility] ROUTINE [address] [place] [address] ECG [facility] W/LEAST 12 LDS TRCG ONLY W/O I&R DSTR 34243 JUDD FERGUSON, NULYT 0 Erika. ZULMA Gardiner PVRT MDPLC FACET JT NRV CRV/THRC 1 LVL DSTRJ 89179 JUDD TOUSSAINTON, NULYT 0 John Gardiner PVRT MDPLC FACET JT NRV CRV/THRC EA LVL FLUOR 44754 JUDD RISON, NEEDLE/CA 0 E. ZULMA CUEVAS T TH MDPLC SPINE/PAR ASPINAL DX/THER ADDON BLOOD 80846 LABORATOR LABORATOR COUNT 0 Y & Y & COMPLETE BIODIAGNO BIODIAGNO AUTO&AUTO [place] [address] LABORATOR LABORATOR THYROID 0 Y & Y & STIMULATI BIODIAGNO BIODIAGNO NG STICS STICS HORMONE TSH BASIC 78382 LABORATOR LABORATOR METABOLIC 0 Y & Y & PANEL BIODIAGNO BIODIAGNO CALCIUM STICS STICS TOTAL HEMOGLOBI 98818 LABORATOR LABORATOR N 0 Y & Y & GLYCOSYLA BIODIAGNO BIODIAGNO MASSIMO A1C STICS STICS HEPATIC 20918 LABORATOR LABORATOR FUNCTION 0 Y & Y & PANEL BIODIAGNO BIODIAGNO STICS STICS COLLECTIO 08845 ONEYDA CO CARMINA, N VENOUS 0 PRIMARY [facility] BLOOD CARE VENIPUNCT CENTERINC URE LIPOPROTE 71634 LABORATOR LABORATOR IN BLOOD 0 Y & Y & EDUARDO BIODIAGNO BIODIAGNO NUMBERS & STICS STICS SUBCLASSE S DSTRJ 48308 JUDD RISON, NULYT 0 E. ZULMA Gardiner PVRT MDPLC FACET JT NRV CRV/THRC EA LVL DSTRJ 77202 JUDD RISON, NULYT 0 E. ZULMA Gardiner PVRT MDPLC FACET JT NRV CRV/THRC 1 LVL FLUOR 95217 JUDD RISON, NEEDLE/CA 0 E. ZULMA Gardiner TH MDPLC SPINE/PAR ASPINAL DX/[place] 224[address] JUDD RISON, DX/THER 0 EAngie Gardiner AGT PVRT MDPLC FACET JT CRV/THRC 2ND LEVEL NJX 23492 JUDD RISON, DX/THER 0 EAngie Gardiner AGT PVRT MDPLC FACET JT CRV/THRC 1 LEVEL NJX 31480 JUDD RISON, DX/THER 0 EAngie Gardiner AGT PVRT MDPLC FACET JT CRV/THRC 3+ LEVEL NJX 03801 JUDD RISON, DX/THER 0 John Gardiner AGT PVRT MDPLC FACET JT CRV/THRC 3+ LEVEL NJX 41484 JUDD RISON, DX/THER 0 John Gardiner AGT PVRT MDPLC FACET JT CRV/THRC 1 LEVEL NJX 80366 JUDD RISON, DX/THER 0 John Gardiner AGT PVRT MDPLC FACET JT CRV/THRC 2ND LEVEL BLOOD 11882 ONEYDA ALEXA AFTAB, COUNT 0 PRIMARY [facility] HEMOGLOBI CARE N CENTERINC COLLECTIO 60434 ONEYDA UGALDE, N 0 PRIMARY SAM CAPILLARY CARE BLOOD CENTERINC SPECIMEN MRI 20926 GETACHEW C ADAL, SPINAL 0 ADAL GETACHEW CANAL CERVICAL W/O CONTRAST MATRL MRI 06935 GETACHEW C ADAL, SPINAL 0 ADAL GETACHEW CANAL LUMBAR W/O CONTRAST MATERIAL 3D 62581 GETACHEW C ADAL, RENDERING 0 ADAL GETACHEW W/INTERP & [place] [address] CHERELLE VILLARREAL, DX/THER 0 MINOR Ziegler AGT PVRT FACET JT CRV/THRC 2ND LEVEL NJX 09869 CHERELLE VILLARREAL, DX/THER 0 MINOR Ziegler AGT PVRT FACET JT CRV/THRC 3+ LEVEL NJX 93006 CHERELLE VILLARREAL, DX/THER 0 MINOR Ziegler AGT PVRT FACET JT CRV/THRC 1 LEVEL COLLECTIO 42031 [facility] HEARD N VENOUS 0 W W BLOOD [facility] VENIPFORMERLY [facility] URE CLEMENTS CENTER GONADOTRO 58631 [facility] PIN 0 W W CHORIONIC [facility] QUANTITAT [facility] ANUP IADNA 28844 [facility] CHLAMYDIA 0 [facility] TRACHOMAT IS AMPLIFIED PROBE TQ CYTP 98465 [facility] CERV/VAG 0 [facility] AUTO THIN LAYER PREP MNL SCREEN SCREENING 58039 HAMILTON BAILEY, [address] MAMMOGRAP RADIOLOGY HY BILATERAL ASSOCIATE S PSC IADNA 66340 [facility] [place] 0 [place] [facility] [place] [facility] GONORRHOE AE AMPLIFIED PROBE TQ DETERMINA 22351 LAURA SANCHEZ TIINNA 0 PUJA LUO REFRACTIV E STATE FUNDUS 91361 LAURA SANCHEZ, PHOTOGRAP 0 PUJA LUO HY W/INTERPR ETATION & REPORT OPHTH 34468 LAURA SANCHEZ, MEDICAL 0 PUJA LUO XM&EVAL IMELDAE NEW PT 1/> VST Encounters Encounter Start End Date Code Location Performer Type Date [facility] - 7 7 [facility] 11084 [facility] [place] PHYSIC[place] NEW/ESTAB S ASSIST PATIENT 40 MIN OFFICE 90258 [facility] 6 6 [place] PH[place] NEW/ESTAB S ASSIST PATIENT 40 MIN [facility] 6 [facility]ERGENC[facility] 75282 [facility] DEPT 6 6 JACOB CHR VISIT EMERGENCY HIGH PHYS SEVERITY& THREAT FUNCJ OFFICE 37536 [facility] RASMUSSEN OUTPATIEN 6 6 MEDICAL TONI T VISIT SERV 25 FOUNDATIO MINUTES [email or web address] UNIVERSIT - 6 6 Y [facility] T OFFICE 30743 [facility] 6 6 Y T VISIT 5 HOSPITAL MINUTES OFFICE 24509 ORQUIDEA PRAJAPATI [facility] 6 6 W KATHY T VISIT 5 PHYSICIAN MINUTES PRACTIC [facility] UNIVERSIT - 6 6 Y [facility] T OFFICE 01552 [facility] 5 5 Y T VISIT 5 HOSPITAL MINUTES OFFICE 89774 [place] OUTPATIEN 5 5 MEDICAL TONI T VISIT SERV 25 FOUNDATIO MINUTES N HOSPITAL UNIVERSIT - 5 5 Y OUTPATI HOSPITAL T OFFICE 43943 UN[facility]ERSIT OUTPATIEN 5 5 Y T VISIT 5 HOSPITAL MINUTES HOSPITAL UNIVERSIT - 5 5 Y OUTPATI HOSPITAL T OFFICE 53595 [place] CONS[facility] 5 5 MEDICAL TONI ION SERV NEW/ESTAB FOUNDATIO PATIENT N 60 MIN HOSPITAL MEADOWVIE - 4 4 W OUTPATIEN REGIONAL T MEDICAL OFFICE 15509 MEADOWVIE ALO OUTPATIEN 4 4 W KATHY T VISIT PHYSICIAN 25 PRACTIC MINUTES OFFICE [address] FIELD AMB OUTPATIEN 4 4 RONALDO DIAZ T VISIT PSC 15 MINUTES OFFICE 45749 ORQUIDEA ALO OUTPATIEN 4 4 W KATHY T VISIT PHYSICIAN 15 PRACTIC MINUTES OFFICE 78444 [facility] ALO OUTPATIEN 4 4 W KATHY T VISIT PHYSICIAN 15 PRACTIC MINUTES OFFICE 87149 FIELD AMB FIELD AMB OUTPATIEN 4 4 T VISIT 15 MINUTES OFFICE 80840 FIELD AMB FIELD AMB OUTPATIEN 4 4 T VISIT 15 MINUTES OFFICE 82405 FIELD AMB FIELD AMB OUTPATIEN 4 4 T NEW 30 MINUTES OFFICE 98669 SOFIYA ARRIAZA OUTPATIEN 3 3 JAM JAM T VISIT 25 MINUTES OFFICE 90499 WINIARSKA WINIARSKA OUTPATIEN 3 3 MAG MAG T VISIT 25 MINUTES OFFICE 87930 SOFIYA OUTPATIEN 3 3 JAM T VISIT 25 MINUTES OFFICE 14879 MAYA MAYA OUTPATIEN 3 3 STEPHANIE STEPHANIE T VISIT 5 MINUTES OFFICE 79972 [facility] PETTEFarooq OUTPATIEN 3 3 PHYSICIAN FRANCISCO JAVIER T VISIT S GROUP 15 MINUTES OFFICE 33333 ENT[facility], [place] CONSULTAT 3 3 PSC LEI ION NEW/ESTAB PATIENT 40 MIN OFFICE 47652 JUDD HUBER OUTPATIEN 3 3 E. ZULMA BERENICE T VISIT 5 MDPLC MINUTES OFFICE 21174 ONEYDA ARRIAZA OUTPATIEN 3 3 PRIMARY JAM T VISIT CARE 25 CENTER MINUTES OFFICE 25718 JUDD MAYA OUTPATIEN 3 3 [facility] STEPHANIE T VISIT 5 MD PLC MINUTES HOSPITAL TAB[facility] - 3 3 [facility] OUTPATIEN INC T OFFICE 21372 [facility] PETTEY OUTPATIEN 3 3 PHYSICIAN JAM T VISIT S GROUP [address]ES [address] [facility] JANE MAG T VISIT 25 PHYSICIAN MINUTES S OFFICE 51276 [facility] PETTEY OUTPATIEN 3 3 PHYSICIAN JAM T NEW 30 S GROUP MINUTES HOSPITAL TABBY - 3 3 [facility] OUTPATIEN INC T EMERGENCY 53152 SURINDER CONDE 3 3 EMERGENCY [facility] DEPARTMEN SERVICES T VISIT HIGH/URGE NT SEVERITY EMERGENCY 90520 TABBY 3 3 [facility] DEPARTMEN INC T VISIT MODERATE SEVERITY OFFICE 62775 JUDD COLON OUTPATIEN 3 3 MAYA T VISIT 5 PLC MINUTES OFFICE 33004 JUDD COLON OUTPATIEN 3 3 MAYA T VISIT 5 PLC MINUTES OFFICE 95772 JUDD HUBER OUTPATIEN 3 3 E. ZULMA BERENICE T VISIT [facility]PLC 10 MINUTES OFFICE 56724 ONEYDA LIU OUTPATIEN 3 3 PRIMARY T VISIT CARE 15 CENTER MINUTES OFFICE [address]07[address] WINIARSKA OUTPATIEN 3 3 JANE MAG T VISIT 25 PHYSICIAN MINUTES S OFFICE 35579 JUDD HUBER OUTPATIEN 3 3 [facility] BERENICE T VISIT PLC 10 MINUTES PERIODIC 03524 [facility] CO PREVENTIV 3 3 PRIMARY E MED EST CARE PATIENT CENTER 40-64YRS OFFICE 74637 [facility] OUTPATIEN 3 3 PRIMARY T VISIT CARE 15 CENTER MINUTES HOSPITAL TABBY - 2 2 [facility] OUTPATIEN INC T OFFICE 22601 JUDD TOUSSAINTON ALL OUTPATIEN 2 2 E. [facility] T VISIT [facility] 10 MINUTES OFFICE 89800 [facility] CO OUTPATIEN 2 2 PRIMARY T VISIT CARE 15 CENTER MINUTES OFFICE 08367 [facility] CO OUTPATIEN 2 2 PRIMARY T VISIT CARE 15 CENTER MINUTES OFFICE 33469 JUDD MAYA OUTPATIEN 2 2 E. [facility] STEPHANIE T VISIT [facility] [address]ES [address] [facility] JANE MAG T VISIT 25 PHYSICIAN MINUTES S OFFICE 76619 JUDD FERGUSON ALL OUTPATIEN 2 2 E. [facility] T VISIT [facility] 10 MINUTES OFFICE 03716 JUDD FERGUSON ALL OUTPATIEN 2 2 E. [facility] T VISIT [facility] 10 MINUTES [facility]OSP[facility] TAB[facility] - 2 2 [facility] OUTPATIEN INC T OFFICE 98506 JUDD FERGUSON ALL OUTPATIEN 2 2 [facility] T VISIT PLC 10 MINUTES [facility]OSP[facility] TABBY - 2 2 [facility] OUTPATIEN INC T OFFICE 81966 JUDD FERGUSON ALL OUTPATIEN 2 2 [facility] T VISIT PLC [address] - 2 2 JANE OUTPATIEN T MEDICALCE NTER OFFICE 23552 [facility] OUTPATIEN 2 2 JANE MAG T VISIT 25 PHYSICIAN MINUTES S OFFICE 54726 ONE[facility] CO OUTPATIEN 2 2 PRIMARY T VISIT CARE 15 CENTER MINUTES EMERGENCY 16387 TABBY 2 2 [facility] DEPARTMEN INC T VISIT MODERATE SEVERITY HOSPITAL TABBY - 2 2 [facility] OUTPATIEN INC T EMERGENCY 65442 SURINDER BELTRAN 2 2 EMERGENCY GAUDENCIO DEPARTMEN SERVICES T VISIT HIGH/URGE NT SEVERITY OFFICE 71319 AWOSIKA AWOSIKA OUTPATIEN 2 2 HENRRY HENRRY T NEW 30 MINUTES OFFICE 46344 JUDD RISON ALL OUTPATIEN 2 2 E. [facility] T VISIT [facility] 10 MINUTES OFFICE 01502 JUDD HUBER OUTPATIEN 2 2 E. [facility] BERENICE T VISIT [facility] 10 MINUTES OFFICE 21623 JUDD TOUSSAINTON ALL OUTPATIEN 2 2 E. [facility] T VISIT [facility] 10 MINUTES OFFICE 35488 ONE[facility] CO OUTPATIEN 2 2 PRIMARY T VISIT CARE 15 CENTER MINUT[facility] OFFICE [address] [facility] JANE MAG T VISIT 25 PHYSICIAN MINUTES [facility] - 2 2 W OUTPATIEN REGIONAL T MEDICAL OFFICE 09945 JUDD FERGUSON ALL OUTPATIEN 2 2 E. [facility] T VISIT [facility] 10 MINUTES OFFICE 12080 JUDD RISON ALL OUTPATIEN 2 2 E. [facility] T VISIT [facility] 10 MINUTES OFFICE 60524 PHYLLIS ALL RISON ALL OUTPATIEN 2 2 T VISIT [address] [facility] JANE MAG T VISIT 25 PHYSICIAN MINUTES S OFFICE [id number] FANNIE GRECO OUTPATIEN 2 2 DON DON T VISIT [id number] CONSULTAT 1 1 JANE ION BRETT/ELIO PHYSICIAN PATIENT S 60 MIN HOSPITAL MEADOWVIE - 1 1 W [facility] MEADOWVIE - 1 1 W [facility] MEADOWVIE - 1 1 W [facility] MEDICAL OFFICE [id number] [facility] FANNIE OUTPATIEN 1 1 PRIMARY DON T VISIT CARE 25 CENTER MINUTES HOSPITAL TABBY - 1 1 [facility] T OFFICE 94553 [facility] CARMINA OUTPATIEN 1 1 PRIMARY WAD T VISIT CARE 25 CENTER MINUTES OFFICE 76558 JUDD FERGUSON ALL OUTPATIEN 1 1 E. [place] T VISIT MDP 15 MINUTES OFFICE 14182 [facility] AFTAB FROY OUTPATIEN 1 1 PRIMARY T VISIT CARE 25 CENTER MINUTES OFFICE 47290 [facility] ERROL JOSIAH OUTPATIEN 1 1 PRIMARY T VISIT CARE 40 CENTER MINUTES OFFICE 84071 JUDD FERGUSON ALL OUTPATIEN 1 1 E. [facility] T VISIT MDPLC 10 MINUTES HOSPITAL TABBY - 1 1 [facility] TABBY - 1 1 [facility] T OFFICE 74118 [facility] CARMINA OUTPATIEN 1 1 PRIMARY WAD T VISIT CARE 25 CENTER MINUTES OFFICE 06735 JUDD HUBER OUTPATIEN 1 1 E. [place] BERENICE T VISIT MDP 10 [facility] 17629 JUDD FERGUSON ALL OUTPATIEN 1 1 E. [place] T VISIT MDPLC 15 MINUTES OFFICE 94155 JUDD FERGUSON ALL OUTPATIEN 0 0 E. [place] T VISIT [facility] 10 MINUTES OFFICE 91417 ONE[facility] GREWAL OUTPATIEN 0 0 PRIMARY WAD T VISIT CARE 25 CENTER MINUTES OFFICE 42545 JUDD FERGUSON ALL OUTPATIEN 0 0 E. [place] T VISIT [facility] 10 MINUTES OFFICE 51406 [facility] PETTEY CONSULTAT 0 0 PHYSICIAN FRANCISCO JAVIER OVIEDO NEW/ESTAB PATIENT 60 MIN EMERGENCY 28028 TABBY 0 0 [facility] DEPARTMEN INC T VISIT LOW/MODER SEVERITY EMERGENCY 11107 SURINDER CONDE 0 0 EMERGENCY [facility] DEPARTMEN SERVICES T VISIT HIGH/URGE NT SEVERITY HOSPITAL TABBY - 0 0 [facility]EN [facility] - 0 0 TH [facility]PATIEN [facility] OFFICE 91943 ONE[facility]DA GREWAL, OUTPATIEN 0 0 PRIMARY [place] M T VISIT CARE 10 CENTERINC MINUTES EMERGENCY 37777 EMERGENCY RICHARDSO DEPT 0 0 CARE N THO VISIT PHYS HIGH [facility] SE[facility] 45913 ONE[facility]DA GREWAL, OUTPATIEN 0 0 PRIMARY [place] M T VISIT CARE 15 CENTERINC MINUTES OFFICE 62499 JUDD FERGUSON, OUTPATIEN 0 0 E. ZULMA CUEVAS T T NEW 30 MDPLC MINUTES OFFICE 11417 ONE[facility] UGALDE, OUTPATIEN 0 0 PRIMARY SAM T VISIT CARE 15 CENTERINC MINUTES OFFICE 61785 CHERELLE VILLARREAL, OUTPATIEN 0 0 MINOR GAXIOLA P T NEW 45 MINUTES HOSPITAL ALPHONSEVIE - 0 0 W [facility]
--- OUTSIDE RECORDS SUMMARY | 2017-04-04 20:24 | External Medical Summary Rpt ---
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 MEDICAL MEDICAL REAGENT AUTO MICROSCOP Y COMPREHEN 58901 MEADOWSONY MEADOWVIE SIVE 1 W W METABOLIC REGIONAL REGIONAL PANEL MEDICAL MEDICAL BLOOD 87072 MEADOWSONY MEADOWVIE COUNT 1 W W COMPLETE REGIONAL REGIONAL AUTO&[place] [address] ONEYDA GRECO TRANSVAGI 1 PRIMARY DON NAL CARE CENTER DXA BONE 28026 [place] ADAL DENSITY 1 MEDICAL GEOVANI STUDY 1/> IMAGING SITES ASS AXIAL SKEL DNA 14847 LABORATOR LABORATOR ANTIBODY 1 Y & Y & STILLAGUAMISH/DO BIODIAGNO BIODIAGNO UBLE STICS STICS STRANDED C-REACTIV 45302 LABORATOR LABORATOR E PROTEIN 1 Y & Y & BIODIAGNO BIODIAGNO STICS STICS SEDIMENTA 09070 LABORATOR LABORATOR TION RATE 1 Y & Y & RBC BIODIAGNO BIODIAGNO NON-AUTOM STICS STICS ATED ANTISTREP 52356 LABORATOR LABORATOR TOLYSIN O 1 Y & Y & TITER BIODIAGNO BIODIAGNO STICS STICS RHEUMATOI 70347 LABORATOR LABORATOR D FACTOR 1 Y & Y & QUANTITAT BIODIAGNO BIODIAGNO ANUP STICS STICS ANTINUCLE 98804 LABORATOR LABORATOR AR 1 Y & Y & ANTIBODIE BIODIAGNO BIODIAGNO S LUCIE STICS STICS COLLECTIO 69534 ONEYDA LIU CARMINA N VENOUS 1 PRIMARY WAD BLOOD CARE VENIPUNCT CENTER URE IADNA 94929 LABORATOR LABORATOR CHLAMYDIA 1 Y & Y & BIODIAGNO BIODIAGNO TRACHOMAT STICS STICS IS AMPLIFIED PROBE TQ IADNA 36754 PATHOLOGY PATHOLOGY PAPILLOMA 1 & & VIRUS CYTOLOGY CYTOLOGY HUMAN LAB LAB AMPLIFIED PROBE TQ CYTP C/V 24831 LABORATOR LABORATOR AUTO THIN 1 Y & Y & LYR BIODIAGNO BIODIAGNO PREPJ SCR STICS STICS MNL RESCR PHYS IADNA 97696 LABORATOR LABORATOR NEISSERIA 1 Y & Y & BIODIAGNO BIODIAGNO GONORRHOE STICS STICS [place] TQ [address]73 [place] ADAL TRANSVAGI [address] [place] [address] [place] ADAL ABDOMEN & 1 MEDICAL GE[place] PELVIS IMAGING W/CONTRAS ASS T MATERIAL 3D 44399 [place] ADAL RENDERING 1 MEDICAL GEOVANI IMAGING W/INTERP& ASS POSTPROC DIFF WORK STATION URINE 48586 TABBY MCNAIR 1 [facility] TEST INC INC VISUAL COLOR CMPRSN METHS RADEX 87277 [place] ADAL SPINE 1 MEDICAL GEOVANI LUMBOSACR IMAGING AL ASS MINIMUM 4 VIEWS RADEX 40376 [place] ADAL SPINE 1 MEDICAL GEOVANI CERVICAL IMAGING 4 OR 5 ASS VIEWS RADEX 71625 TABBY MCNAIR SPINE 1 [facility] CERVICAL INC INC 6 OR MORE VIEWS COLLECTIO 28556 ONE[facility] CO CARMINA N VENOUS 1 PRIMARY WAD BLOOD CARE VENIPUNCT CENTER URE URNLS DIP 29325 ONE[facility] CO CARMINA 1 PRIMARY WAD STICK/TAB CARE LET RGNT CENTER AUTO W/O MICROSCOP Y BLOOD 69799 LABORATOR LABORATOR COUNT 1 Y & Y & COMPLETE BIODIAGNO BIODIAGNO AUTO&AUTO [place] [address] LABORATOR LABORATOR THYROID 1 Y & Y & STIMULATI BIODIAGNO BIODIAGNO NG STICS STICS HORMONE TSH BASIC 44294 LABORATOR LABORATOR METABOLIC 1 Y & Y & PANEL BIODIAGNO BIODIAGNO CALCIUM [place]ICS [place] NJX 24358 JUDD RISON ALL DX/THER 1 E. ZULMA AGT PVRT MDPLC FACET JT LMBR/SAC 1 LEVEL NJX 81374 JUDD RISON ALL DX/THER 1 E. ZULMA AGT PVRT MDPLC FACET JT LMBR/SAC 2ND LEVEL MODERATE 16854 JUDD RISON ALL SEDATJ 1 E. ZULMA SAME MDPLC PHYS/QHP 5/>YRS INIT 30 MIN THERAPEUT 07829 [facility]/> 1 TH [facility] [place] EXERCISES FLUOR 01000 JUDD RISON ALL NEEDLE/CA 1 E. MAYA TH MDPLC SPINE/PAR ASPINAL DX/THER ADDON DSTRJ 10174 JUDD RISON ALL NULYT 1 E. ZULMA PVRT MDPLC FACET JT NRV CRV/THRC EA LVL DSTRJ 41749 JUDD RISON ALL NULYT 1 E. ZULMA PVRT MDPLC FACET JT NRV CRV/THRC 1 LVL THERAPEUT 25416 [facility] 1/> 1 TH AREAS [facility] [place] EXERCISES THERAPEUT 97851 [facility] 1/> 1 AREAS [facility] [place] EXERCISES THERAPEUT 00343 [facility] PX 1/> 1 AREAS [facility] E[facility] [place] EXERCISES THERAPEUT 39803 [facility] PX 1/> 1 AREAS [facility] E[place] 15 [place] EXERCISES THERAPEUT 35316 [facility] P[facility] 1/> 1 AREAS [facility] E[place] EXERCISES THERAPEUT 95972 [facility] P[facility] 1/> 1 TH AREAS [facility] [place] EXERCISES MODERATE 74054 JUDD RISON ALL SEDATJ 1 E. ZULMA SAME MDPLC PHYS/QHP 5/>YRS INIT 30 MIN NJX 11056 JUDD RISON ALL DX/THER 1 E. ZULMA AGT PVRT MDPLC FACET JT CRV/THRC 2ND LEVEL NJX 43659 JUDD RISON ALL DX/THER 1 E. ZULMA AGT PVRT MDPLC FACET JT CRV/THRC 1 LEVEL NJX 17445 JUDD RISON ALL DX/THER 1 EAngie MAYA AGT PVRT MDPLC FACET JT CRV/THRC 3+ LEVEL THERAPEUT 04577 [facility] P[facility] 1/> AREAS [facility] EXERCISES THERAPEUT 13134 [facility] PX /> AREAS [facility] [place] EXERCISES MANUAL 42969 [facility] THERAPY TQS 1/> [facility] 15 [place] [address] [facility]/> AREAS EACH 15 [facility] TH[place] W/[place] [address] [facility] 1/> AREAS EACH 15 [facility] [place] W/XERSS APPL 50146 [facility] MODALITY 1/> AREAS [facility] [place] MECHANICA L THERAPEUT 94991 [facility] PX / AREAS [facility] [place] 15 [place] [address] [facility] 1/> AREAS EACH 15 [facility] W/[place] [address] [facility] 1/> AREAS EACH 15 [facility] MIN [place] W/XERSS APPL 29924 [facility] MODALITY 1/> AREAS [facility] [place] L THERAPEUT 60798 [facility] PX 1/> AREAS [facility] [place] EXERCISES MANUAL 96231 [facility] THERAPY TQS /> [place] E[place] 15 MINUTES THERAPEUT 40858 [facility] PX /> AREAS [facility] EACH 15 [place] [address] [facility] 1/> AREAS EACH 15 [facility] [place] W/XERSS NJX 21810 JUDD RISON ALL DX/THER 1 E. ZULMA AGT PVRT MDPLC FACET JT CRV/THRC 2ND LEVEL MODERATE 54034 JUDD RISON ALL SEDATJ 1 E. ZULMA SAME MDPLC PHYS/QHP 5/>YRS INIT 30 MIN NJX 24409 JUDD RISON ALL DX/THER 1 E. ZULMA AGT PVRT MDPLC FACET JT CRV/THRC 3+ LEVEL NJX 79552 JUDD RISON ALL DX/THER 1 E. ZULMA AGT PVRT MDPLC FACET JT CRV/THRC 1 LEVEL APPL 57658 [facility] MODALITY 1/> AREAS [facility] [place] [address] [facility] 1/> AREAS EACH 15 [facility] [place] W/[place] [address] [facility] 1/> AREAS EACH 15 [facility] [place] W/XERSS THERAPEUT 03462 [facility] PX /> AREAS [facility] EACH 15 [place] EXERCISES PHYSICAL 68833 [facility] THERAPY [facility]IO [facility] [place] [address] JUDD RISON ALL DX/THER 0 E. ZULMA AGT PVRT MDPLC FACET JT CRV/THRC 2ND LEVEL NJX 85450 JUDD RISON ALL DX/THER 0 E. ZULMA AGT PVRT MDPLC FACET JT CRV/THRC 1 LEVEL NJX 17631 JUDD RISON ALL DX/THER 0 E. ZULMA AGT PVRT MDPLC FACET JT CRV/THRC 3+ LEVEL RADEX 90905 [place] AMBER ANKLE 0 MEDICAL LITZY COMPLETE IMAGING MINIMUM 3 ASS VIEWS RADEX 66835 [place] AMBER FOOT 0 MEDICAL LITZY COMPLETE IMAGING MINIMUM [place] [address] [facility] 1/> AREAS 0 TH TH EACH 15 [facility] [place] W/[place] [address] [facility] 1/> AREAS 0 TH TH EACH 15 [facility] MIN [place] [address] [facility] 1/> AREAS 0 TH TH EACH 15 [facility] [place] [address] [facility] 1/> AREAS 0 TH TH EACH 15 [facility] [place] W/XERSS FLUOR 99857 JUDD RISON ALL NEEDLE/CA 0 E. MAYA TH MDPLC SPINE/PAR ASPINAL DX/THER ADDON DSTRJ 25406 JUDD RISON ALL NULYT 0 E. ZULMA PVRT MDPLC FACET JT NRV LMBR/SAC EA LVL DSTRJ 57484 JUDD RISON ALL NULYT 0 E. ZULMA PVRT MDPLC FACET JT NRV LMBR/SAC 1 LVL PHYSICAL 62988 [facility] THERAPY 0 TH TH EVALUATIO [facility] [place] FLUOR 77290 JUDD RISON, NEEDLE/CA 0 E. ZULMA COLONAN T TH MDPLC SPINE/PAR ASPINAL DX/THER ADDON DSTRJ 19545 JUDD RISON, NULYT 0 E. ZULMA COLONAN T PVRT MDPLC FACET JT NRV LMBR/SAC 1 LVL DSTRJ 89981 JUDD TOUSSAINTON, NULYT 0 Erika. ZULMA Gardiner PVRT MDPLC FACET JT NRV LMBR/SAC EA LVL NJX 57596 JUDD TOUSSAINTON, DX/THER 0 John Gardiner AGT PVRT MDPLC FACET JT LMBR/SAC 1 LEVEL NJX 79183 JUDD RISON, DX/THER 0 Erika. ZULMA Gardiner AGT PVRT MDPLC FACET JT LMBR/SAC 2ND LEVEL ECG 49499 BRENTON FARRIS, ROUTINE 0 DEL A DEL A ECG W/LEAST 12 LDS I&R ONLY NJX 99038 JUDD TOUSSAINTON, DX/THER 0 E. ZULMA Gardiner AGT PVRT MDPLC FACET JT LMBR/SAC 2ND LEVEL NJX 60841 JUDD TOUSSAINTON, DX/THER 0 John Gardiner AGT PVRT MDPLC FACET JT LMBR/SAC 1 LEVEL BASIC 51067 [facility] METABOLIC [address] [place] [address] PANEL [facility] [place] [address] [facility] TROPONIN [address] [place] [address] QUANTITAT [facility] ANUP BLOOD 30218 [facility] COUNT [address] [place] [address] COMPLETE [facility] AUTO&[place]RNTL WBC NJX 96973 JUDD TOUSSAINTON, DX/THER 0 John Gardiner AGT PVRT MDPLC FACET JT LMBR/SAC 3+ LEVEL RADIOLOGI 34023 [facility] C EXAM [address] [place] [address] CHEST 2 [facility] VIEWS FRONTAL&L ATERAL ECG 84877 [facility] ROUTINE [address] [place] [address] ECG [facility] W/LEAST 12 LDS TRCG ONLY W/O I&R DSTR 87481 JUDD FERGUSON, NULYT 0 Erika. ZULMA Gardiner PVRT MDPLC FACET JT NRV CRV/THRC 1 LVL DSTRJ 03474 JUDD TOUSSAINTON, NULYT 0 John Gardiner PVRT MDPLC FACET JT NRV CRV/THRC EA LVL FLUOR 99396 JUDD RISON, NEEDLE/CA 0 E. ZULMA CUEVAS T TH MDPLC SPINE/PAR ASPINAL DX/THER ADDON BLOOD 91560 LABORATOR LABORATOR COUNT 0 Y & Y & COMPLETE BIODIAGNO BIODIAGNO AUTO&AUTO [place] [address] LABORATOR LABORATOR THYROID 0 Y & Y & STIMULATI BIODIAGNO BIODIAGNO NG STICS STICS HORMONE TSH BASIC 26175 LABORATOR LABORATOR METABOLIC 0 Y & Y & PANEL BIODIAGNO BIODIAGNO CALCIUM STICS STICS TOTAL HEMOGLOBI 82529 LABORATOR LABORATOR N 0 Y & Y & GLYCOSYLA BIODIAGNO BIODIAGNO MASSIMO A1C STICS STICS HEPATIC 55368 LABORATOR LABORATOR FUNCTION 0 Y & Y & PANEL BIODIAGNO BIODIAGNO STICS STICS COLLECTIO 28021 ONEYDA CO CARMINA, N VENOUS 0 PRIMARY [facility] BLOOD CARE VENIPUNCT CENTERINC URE LIPOPROTE 02521 LABORATOR LABORATOR IN BLOOD 0 Y & Y & EDUARDO BIODIAGNO BIODIAGNO NUMBERS & STICS STICS SUBCLASSE S DSTRJ 13857 JUDD RISON, NULYT 0 E. ZULMA Gardiner PVRT MDPLC FACET JT NRV CRV/THRC EA LVL DSTRJ 93833 JUDD RISON, NULYT 0 E. ZULMA Gardiner PVRT MDPLC FACET JT NRV CRV/THRC 1 LVL FLUOR 56226 JUDD RISON, NEEDLE/CA 0 E. ZULMA Gardiner TH MDPLC SPINE/PAR ASPINAL DX/[place]X 06421 JUDD RISON, DX/THER 0 EAngie Gardiner AGT PVRT MDPLC FACET JT CRV/THRC 2ND LEVEL NJX 15912 JUDD RISON, DX/THER 0 EAngie Gardiner AGT PVRT MDPLC FACET JT CRV/THRC 1 LEVEL NJX 80424 JUDD RISON, DX/THER 0 EAngie Gardiner AGT PVRT MDPLC FACET JT CRV/THRC 3+ [place] NJX 33208 JUDD RISON, DX/THER 0 John Gardiner AGT PVRT MDPLC FACET JT CRV/THRC 3+ LEVEL NJX 41662 JUDD RISON, DX/THER 0 John Gardiner AGT PVRT MDPLC FACET JT CRV/THRC 1 LEVEL NJX 41469 JUDD RISON, DX/THER 0 John Gardiner AGT PVRT MDPLC FACET JT CRV/THRC 2ND LEVEL BLOOD 35160 ONEYDA ALEXA AFTAB, COUNT 0 PRIMARY SAM HEMOGLOBI CARE N CENTERINC COLLECTIO 68199 ONEYDA UGALDE, N 0 PRIMARY SAM CAPILLARY CARE BLOOD CENTERINC SPECIMEN MRI 93028 [facility] C ADAL, SPINAL 0 ADAL GETACHEW CANAL CERVICAL W/O CONTRAST MATRL MRI 56858 GET[facility] C ADAL, SPINAL 0 ADAL GETACHEW CANAL LUMBAR W/O CONTRAST MATERIAL 3D 14528 GETAC[facility]W C ADAL, RENDERING 0 ADAL GETACHEW W/INTERP & [place] [address] CHERELLE VILLARREAL, DX/THER 0 MINOR Ziegler AGT PVRT FACET JT CRV/THRC 2ND LEVEL NJX 36060 CHERELLE VILLARREAL, DX/THER 0 MINOR Ziegler AGT PVRT FACET JT CRV/THRC 3+ LEVEL NJX 91751 CHERELLE VILLARREAL, DX/THER 0 MINOR Ziegler AGT PVRT FACET JT CRV/THRC 1 LEVEL COLLECTIO 49517 ORQUIDE[facility] HEARD N VENOUS 0 W W BLO[facility] GONADOTRO 61438 [facility] HEARD PIN 0 W W [facility]OR[facility] QUANTITAT [facility] ANUP IADNA 88304 [facility] CHLAMYDIA 0 [facility] TRACHOMAT IS AMPLIFIED PROBE TQ CYTP 79469 [facility] CERV/VAG 0 [facility] AUTO THIN LAYER PREP MNL SCREEN SCREENING 09873 RANDOLPH BAILEY, [address] MAMMOGRAP RADIOLOGY HY BILATERAL ASSOCIATE S PSC IADNA 57939 [facility] [place] 0 [place] [facility] MAINE INC GONORRHOE AE AMPLIFIED PROBE TQ DETERMINA 49833 LAURA SANCHEZ TIINNA 0 PUJA LUO REFRACTIV E STATE FUNDUS 82937 LAURA SANCHEZ, PHOTOGRAP 0 PUJA LUO HY W/INTERPR ETATION & REPORT OPHTH 03242 LAURA SANCHEZ, MEDICAL 0 PUJA LUO XM&EVAL IMELDAE NEW PT 1/> VST Encounters Encounter Start End Date Code Location Performer Type Date [facility] TAB[facility] - 7 7 [facility] OFF[facility] 22902 [facility] 6 6 [place] PHYSICIAN NEW/ESTAB S ASSIST PATIENT 40 MIN OFFICE 46507 [facility] CUR[facility] 6 6 [place] PHYSIC[place] NEW/ESTAB S ASSIST PATIENT 40 MIN [facility] 31267 [facility] DEPT 6 6 JACOB CHR VISIT EMERGENCY HIGH PHYS SEVERITY& THREAT FUNCJ OFFICE 25164 [facility] RASMUSSEN OUTPATIEN 6 6 MEDICAL TONI T VISIT SERV 25 FOUNDATIO MINUTES [facility]ERSIT - 6 6 Y [facility] T OFFICE 45973 [facility] Y T VISIT 5 HOSPITAL MINUTES OFFICE 66965 [facility] 6 W KATHY T VISIT [address] [facility] UNIVERSIT - 6 6 Y [facility] T OFFICE 06773 [facility] 5 Y T VISIT 5 HOSPITAL MINUTES OFFICE 98801 [place] [facility] OUTPATIEN 5 5 MEDICAL TONI T VISIT SERV 25 FOUNDATIO MINUTES N HOSPITAL UNIVERSIT - 5 5 Y OUTPATI HOSPITAL T OFFICE 54376 [facility]IT OUTPATIEN 5 5 Y T VISIT 5 HOSPITAL MINUTES HOSPITAL UNIVERSIT - 5 5 Y OUTPATI HOSPITAL T OFFICE 84259 [place] [facility] CONSULTAT 5 5 MEDICAL TONI ION SERV NEW/ESTAB FOUNDATIO PATIENT N 60 MIN HOSPITAL MEADOW[facility] - 4 4 W OUTPATIEN REGIONAL T MEDICAL OFFICE 53907 MEADOWVIE ALO OUTPATIEN 4 4 W KATHY T VISIT PHYSICIAN 25 PRACTIC MINUTES OFFICE [address] FIELD AMB OUTPATIEN 4 4 RONALDO DIAZ T VISIT PSC 15 MINUTES OFFICE 35084 ORQUIDEA ALO OUTPATIEN 4 4 W KATHY T VISIT PHYSICIAN 15 PRACTIC MINUTES OFFICE 11898 CAPRIWSONY ALO OUTPATIEN 4 4 W KATHY T VISIT PHYSICIAN 15 PRACTIC MINUTES OFFICE 68876 FIELD AMB FIELD AMB OUTPATIEN 4 4 T VISIT 15 MINUTES OFFICE 01808 FIELD AMB FIELD AMB OUTPATIEN 4 4 T VISIT 15 MINUTES OFFICE 86337 FIELD AMB FIELD AMB OUTPATIEN 4 4 T NEW 30 MINUTES OFFICE 65403 SOFIYA ARRIAZA OUTPATIEN 3 3 JAM JAM T VISIT 25 MINUTES OFFICE 97929 WINIARSKA WINIARSKA OUTPATIEN 3 3 MAG MAG T VISIT 25 MINUTES OFFICE 16029 SOFIYA OUTPATIEN 3 3 JAM T VISIT 25 MINUTES OFFICE 25970 MAYA MAYA OUTPATIEN 3 3 STEPHANIE STEPHANIE T VISIT 5 MINUTES OFFICE 63263 [facility] PETTEFarooq OUTPATIEN 3 3 PHYSICIAN FRANCISCO JAVIER T VISIT S GROUP 15 MINUTES OFFICE 05332 [facility], [place] CONSULTAT 3 3 PSC LEI ION NEW/ESTAB PATIENT 40 MIN OFFICE 42488 JUDD HUBER OUTPATIEN 3 3 E. ZULMA BERENICE T VISIT 5 MDPLC MINUTES OFFICE 31060 ONEYDA ARRIAZA OUTPATIEN 3 3 PRIMARY JAM T VISIT CARE 25 CENTER MINUTES OFFICE 16307 JUDD MAYA OUTPATIEN 3 3 MAYA STEPHANIE T VISIT 5 MD PLC MINUTES HOSPITAL TABBY - 3 3 [facility] OUTPATIEN INC T OFFICE 56107 [facility] PETTEY OUTPATIEN 3 3 PHYSICIAN JAM T VISIT S GROUP [address]ES [address] [facility] OUTPATIEN 3 3 JANE MAG T VISIT 25 PHYSICIAN MINUTES S OFFICE 65007 [facility] PETTEY OUTPATIEN 3 3 PHYSICIAN JAM T NEW 30 S GROUP MINUTES HOSPITAL TABBY - 3 3 [facility] OUTPATIEN INC T EMERGENCY 49249 SURINDER CONDE 3 3 EMERGENCY [facility] DEPART[facility] SERVICES T VISIT HIGH/URGE NT SEVERITY EMERGENCY 67163 TABBY 3 3 [facility] DEPARTMEN INC T VISIT MODERATE SEVERITY OFFICE 31546 JUDD COLON OUTPATIEN 3 3 MAYA T VISIT 5 PLC MINUTES OFFICE 12721 JUDD COLON OUTPATIEN 3 3 MAYA T VISIT 5 PLC MINUTES OFFICE 14255 JUDD HUBER OUTPATIEN 3 3 E. ZULMA BERENICE T VISIT MDPLC 10 MINUTES OFFICE 86392 ONEYDA LIU OUTPATIEN 3 3 PRIMARY T VISIT CARE 15 CENTER MINUTES OFFICE [address] WINIARSKA OUTPATIEN 3 3 JANE MAG T VISIT 25 PHYSICIAN MINUTES S OFFICE 12426 JUDD HUBER OUTPATIEN 3 3 MAYA BERENICE T VISIT PLC 10 MINUTES PERIODIC 50067 ONE[facility] CO PREVENTIV 3 3 PRIMARY E MED EST CARE PATIENT CENTER 40-64YRS OFFICE 76577 ONEYDA CO OUTPATIEN 3 3 PRIMARY T VISIT CARE 15 CENTER MINUTES HOSPITAL TABBY - 2 2 [facility] OUTPATIEN INC T OFFICE 56227 JUDD TOUSSAINTON ALL OUTPATIEN 2 2 E. MAYA T VISIT MDPLC 10 MINUTES OFFICE 47268 ONEYDA CO OUTPATIEN 2 2 PRIMARY T VISIT CARE 15 CENTER MINUTES OFFICE 82253 ONEY[facility] CO OUTPATIEN 2 2 PRIMARY T VISIT CARE 15 CENTER MINUTES OFFICE 58186 JUDD MAYA OUTPATIEN 2 2 E. MAYA STEPHANIE T VISIT [facility] [address]ES [address] [facility] 2 2 JANE MAG T VISIT 25 PHYSICIAN MINUTES S OFFICE 32614 JUDD FERGUSON ALL OUTPATIEN 2 2 E. [facility] T VISIT [facility] 10 MINUTES OFFICE 90913 JUDD FERGUSON ALL OUTPATIEN 2 2 [facility]. [facility] T [facility] 10 MINUTES [facility] - 2 2 [facility] T OFFICE 50961 JUDD FERGUSON ALL OUTPATIEN 2 2 [facility] T [facility] 10 MINUTES [facility] - 2 2 [facility] INC T OFFICE 15278 JUDD FERGUSON ALL OUTPATIEN 2 2 [facility] T [facility] [address] - 2 2 JANE OUTPATIEN T MEDICALCE NTER OFFICE [address] [facility] OUTPATIEN 2 2 JANE MAG T VISIT 25 PHYSICIAN MINUTES S OFFICE 79860 [facility] OUT[facility] 2 2 PRIMARY T VISIT CARE 15 CENTER MINUTES EMERGENCY 70015 [facility] 2 2 [facility] DEPARTMEN INC T VISIT MODERATE SEVERITY HOSPITAL ATBBY - 2 2 [facility] OUTPATIEN INC T EMERGENCY 70346 SURINDER BELTRAN 2 2 EMERGENCY GAUDENCIO DEPARTMEN SERVICES T VISIT HIGH/URGE NT SEVERITY OFFICE 51416 AWOSIKA AWOSIKA OUTPATIEN 2 2 HENRRY HENRRY T NEW 30 MINUTES OFFICE 35016 JUDD RISON ALL OUTPATIEN 2 2 E. [facility] T VISIT [facility] 10 MINUTES OFFICE 98608 JUDD HUBER OUTPATIEN 2 2 E. [facility] BERENICE T VISIT [facility] 10 MINUTES OFFICE 49730 JUDD TOUSSAINTON ALL OUTPATIEN 2 2 E. [facility] T VISIT [facility] 10 MINUTES OFFICE 90936 [facility] OUTPATIEN 2 2 PRIMARY T VISIT CARE 15 CENTER MINUTES OFFICE 07636 [facility] OUTPAT[facility] 2 2 JANE MAG T VISIT [address] [facility] 2 2 W OUTPATIEN REGIONAL T MEDICAL OFFICE 62708 JUDD FERGUSON ALL OUTPATIEN 2 2 E. [facility] T VISIT [facility] 10 MINUTES OFFICE 01367 JUDD RISON ALL OUTPATIEN 2 2 E. [facility] T VISIT [facility] 10 MINUTES OFFICE 38698 PHYLLIS ALL RISON ALL OUTPATIEN 2 2 T VISIT [address] [facility] JANE MAG T VISIT 25 PHYSICIAN MINUTES S OFFICE 85250 FANNIE GRECO OUTPATIEN 2 2 DON DON T VISIT [address]ES [address] CONSULTAT 1 1 JANE ION BRETT/ELIO PHYSICIAN PATIENT S 60 MIN HOSPITAL MEADOWVIE - 1 1 W [facility] MEADOW[facility] - 1 1 W [facility] - 1 1 [facility] 50339 [facility] FANNIE OUTPATIEN 1 1 PRIMARY DON T VISIT CARE 25 CENTER MINUTES [facility] - 1 1 [facility] T OFFICE 64646 [facility] CARMINA OUTPATIEN 1 1 PRIMARY WAD T VISIT CARE 25 CENTER MINUTES OFFICE 43417 JUDD FERGUSON ALL OUTPATIEN 1 1 E. [facility] T VISIT MDP 15 MINUTES OFFICE 09579 [facility] AFTAB FROY OUTPATIEN 1 1 PRIMARY T VISIT CARE 25 CENTER MINUTES OFFICE 33879 [facility] ERROL JOSIAH OUTPATIEN 1 1 PRIMARY T VISIT CARE 40 CENTER MINUTES OFFICE 06136 JUDD FERGUSON ALL OUTPATIEN 1 1 E. [facility] T VISIT [facility] 10 MINUTES [facility] - 1 1 [facility] 1 [facility] 51194 [facility] CARMINA OUTPATIEN 1 1 PRIMARY WAD T VISIT CARE 25 CENTER MINUTES OFFICE 90058 JUDD HUBER OUTPATIEN 1 1 E. [facility] BERENICE T VISIT MDP 10 [facility] [address] [facility] 33328 JUDD [facility]ERGUSON ALL OUTPATIEN 1 1 E. [facility] T VISIT [facility] 15 MINUTES OFFICE 42550 JUDD FERGUSON ALL OUTPATIEN 0 0 E. [facility] T VISIT [facility] 10 MINUTES OFFICE 32904 [facility] GREWAL OUTPATIEN 0 0 PRIMARY WAD T VISIT CARE 25 CENTER MINUTES OFFICE 55897 JUDD FERGUSON ALL OUTPATIEN 0 0 E. [facility] T VISIT [facility] 10 MINUTES OFFICE 34522 [facility] PETTEY CONSULTAT 0 0 PHYSICIAN FRANCISCO JAVIER OVIEDO NEW/ESTAB PATIENT 60 MIN EMERGENCY 91090 [facility] 0 0 [facility] DEPARTMEN INC T VISIT LOW/MODER SEVERITY EMERGENCY 79181 SURINDER CONDE 0 0 EMERGENCY [facility] DEPARTMEN SERVICES T VISIT HIGH/URGE NT SEVERITY [facility] - 0 0 [facility] 0 0 TH OUTPATIEN [facility] OFFICE 32577 [facility] GREWAL, OUTPATIEN 0 0 PRIMARY KENDALL M T VISIT CARE 10 CENTERINC MINUTES EMERGENCY [id number] EMERGENCY [facility] DEPT 0 0 CARE N THO VISIT PHYS [facility]IGH [facility] SEVERITY& THREAT [facility] - [facility] OFF[facility] [id number] ONEYDA GREWAL, OUTPATIEN 0 0 PRIMARY [place] M T VISIT CARE [facility] MINUTES OFFICE [id number] JUDD FERGUSON, OUTPATIEN 0 0 E. ZULMA CUEVAS T T NEW 30 [facility] MINUTES OFFICE [id number] ONEYDA UGALDE, OUTPATIEN 0 0 PRIMARY SAM T V[facility]IT [facility] MINUTES OFFICE [id number] CHERELLE VILLARREAL, OUTPATIEN 0 0 MINOR [place] P T NEW 45 MINUTES [facility]OSPITAL [facility] - 0 0 W [facility]
--- OUTSIDE RECORDS SUMMARY | 2017-04-04 20:25 | External Medical Summary Rpt ---
Demographics Preferred Language Italian Marital Status Unknown Caodaism Affiliation Unknown Race Unknown Ethnic Group Unknown Author Author [place] Address Unknown Phone Immunization No patient found.
--- OUTSIDE RECORDS SUMMARY | 2017-04-04 20:25 | External Medical Summary Rpt ---
Demographics Preferred Language Persian Marital Status Unknown Buddhist Affiliation Unknown Race Unknown Ethnic Group Unknown Author Author [place] Address Unknown Phone Immunization No patient found.
--- NOTE | 2017-04-04 20:37 | Emergency Room Report ---
History of Present Illness Time Seen by 2009 Presenting Problem in Triage Pt arrived:Walked Presenting Problem:SWELLING AND DECREASED HEARING IN RIGHT EAR (RESOLVING) PRESENTS TODAY WITH SAME IN LEFT EAR. REPORTS CHEST COLD X1 WEEK. ALSO WANTS TO BE SEEN ABOUT SWELLING IN LEFT FOOT X 4 WEEKS Onset of symptoms date/time:03/30/1708/06/800 or onset unknown for: Treatment Prior to Arrival: MD PSYCHIATRY Provided by: Sepsis Risk Assessment: Temp: 98.8 B/P: 147/84 MAP: 102 Pulse: 87 Resp: 16 Recent fever? N Clinical Suspician of Infection? Y Mental Status: 1 - Regular (Normal Baseline) Sepsis Risk:Low Sepsis Risk Have you (or family members/close friends) recently traveled outside the [place]? N If Yes, where/when: Have you had exposure to infectious disease within the past month? N TB? Other? Specify: Source patient, RN notes reviewed, family, old records Exam Limitations no limitations Comment pt with rt ear pain for a few days and now with lt ear pain with preauricular swelling - pt with no rash or sore throat - she has also a month of painless lt ankle swelling with no trauma or other jts swollen Cardiac Chest Pain Chest pain indicative of cardiac No Timing/Duration this evening Severity moderate ALLERGIES Coded Allergies: morphine (04/04/17) Home Medications Reported Medications Metoprolol Tartrate (Metoprolol) 50 MG PO DAILY Propranolol Hcl (Propranolol HCl ER) 80 MG PO DAILY Topiramate (Topamax) 200 MG PO PRN AMITRIPTYLINE HCL (Amitriptyline HCl) 50 MG PO Methadone Hcl (Methadone) 10 MG PO Oxycodone HCl Sr (Oxycodone CR) 10 MG PO Q12H [UNKNOWN] [UNKNOWN] History Medical History General Angina: No AK: No Hypertension? Yes Hyperlipidemia? No CHF? No COPD? No Asthma? No CVA? No Seizures? No Diabetes? No GB Disease: No MRSA? No TB? No Cancer? 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 denies: ear discharge, epistaxis, throat pain. Respiratory denies cough, denies shortness of breath, denies wheezing Cardiovascular denies chest pain, denies syncope Gastrointestinal denies abdominal pain, denies vomiting Genitourinary denies: dysuria, frequency, hesitancy, hematuria. Musculoskeletal see HPI, denies back pain, denies joint pain, joint swelling, denies neck pain Skin denies rash Psychiatric/Neurological denies headache, denies seizure Physical Exam Vital Signs Vital Signs Date Time Temp Pulse Resp B/P Pulse O2 O2 Flow FiO2 Ox Delivery Rate 04/04 2114 99.1 75 16 130/82 97 04/04 2034 87 16 147/84 94 04/04 2005 98.8 86 14 153/77 96 - WBC >12,000 or <4,000 or 10% bands? 2 or more SIRS Criteria Met? B/P:147/84 MAP:102 Creatinine >2.0? UA output<0.5ml/kg/hr for 2 hrs? Platelet count >100,000? Lactate >2.0mmol/1? INR >1.2 or PTT > than 60 sec? Evidence of Organ Dysfunction? Provider documented clinical suspician of infection? Y Sepsis Criteria Count: 1 Sepsis Risk: Low Sepsis Risk General Appearance no apparent distress Eye Exam - bilateral eye PERRL, bilateral eye EOMI Ear, Nose, Throat bilat swollen canals unable to see tm and tender on lt preauricular swelling with no def parotid swelling - no shingles and throat ok Neck supple Respiratory Status No: respiratory distress. Cardiovascular regular rate/rhythm Peripheral Pulses Pulses normal Yes Extremities no calf tenderness, swelling, swelling lt ankle with no reddness or warmth and rom and neurovascular ok Strength 4 Upper Ext (L), 4 Upper Ext (R), 4 Lower Ext (L), 4 Lower Ext (R) Neurologic alert, senior reservations agent II-XII nml as tested, no motor/sensory deficits Reflexes Reflexes normal No Mental status normal mood/affect Skin no rash cons.w/shingles Medical Decision Making LABS/Meds/Orders Pt receiving controlled substance in ED? No Results/Orders Laboratory Tests 04/04/17 2030: Sodium 141, Potassium 3.6, Chloride 104, Carbon Dioxide 30, BUN 9, Creatinine 0.7, Estimated Creat Clear 112, Estimated GFR (MDRD) 88, Glucose 125 H, Calcium 8.8, Total Bilirubin 0.5, AST 12 L, ALT 18, Alkaline Phosphatase 115, Total Protein 7.8, Albumin 3.4, Globulin 4.4 H, Albumin/Globulin Ratio 0.8 L, WBC 11.3 H, RBC 4.29, Hgb 13.9, Hct 41.9, MCV 97.6, RDW 12.0, Plt Count 325, MPV 7.8, Gran % 72.2, Gran # 8.2 H, Lymphocytes % 20.6, Monocytes % 6.2, Eosinophils % 0.9, Basophils % 0.1, Lymphocytes # 2.3, Monocytes # 0.7, Eosinophils # 0.1, Basophils # 0.0, PUBS MCHC 33.2, MCH 32.4 H Current Medication Orders Sig/Cristal Start time Last Medication Dose Route Stop Time Status Admin Ceftriaxone Sodium 0 .STK-MED ONE 04/04 2120 DC IV Methylprednisolone 0 .STK-MED ONE 04/04 2120 DC Sodium Succinate .ROUTE Sodium Chloride 1,000 ML .STK-MED ONE 04/04 2120 DC IV Ketorolac 0 .STK-MED ONE 04/04 2119 DC Tromethamine .ROUTE Sodium Chloride 50 ML .STK-MED ONE 04/04 2119 DC IV Ceftriaxone Sodium 1 GM ONCE ONE 04/04 2115 AC Sodium Chloride 50 ML IV 04/04 2144 Ketorolac 30 MG ONCE ONE 04/04 2115 DC Tromethamine IV 04/04 2116 Methylprednisolone 125 MG ONCE ONE 04/04 2115 DC Sodium Succinate IV 04/04 2116 Ketorolac 30 MG ONCE ONE 04/04 2030 DC Tromethamine IV 04/04 2031 Sodium Chloride 10 ML PRN PRN 04/04 2015 AC IV 04/05 2015 Sodium Chloride 10 ML PRN PRN 04/04 2015 AC IV 04/05 2015 Sodium Chloride 1,000 ML .Q1H1M 04/04 2015 DC IV 04/04 2115 Sodium Chloride 10 ML PRN PRN 04/04 2015 AC IV 04/05 2015 Orders Procedure Date/time Status CULTURE, THROAT 04/04 2037 Active CHEST(2 VIEWS-NOT PORTABLE) 04/04 2016 Active IV SALINE LOCK 04/04 2016 Active STREP SCREEN THROAT 04/04 2016 Complete CBC WITH AUTO DIFF 04/04 2016 Complete CHEM 12 PROFILE 04/04 2016 Complete XRAY/CT/US XRAY/CT/US XRAY chest XR interpretation by reviewed by me Xray Results normal/NAD Departure Departure Time of Disposition 2108 Disposition DC Home or Self Care(routine) Clinical Impression Primary Impression: Otitis externa Qualifiers: Otitis externa type: unspecified type Chronicity: acute Laterality: bilateral Qualified Code: H60.503 - Unspecified acute noninfective otitis externa, bilateral Secondary Impressions: Swelling of ankle joint, left Condition STABLE Referrals Ronaldo DIAZ,Shaan Garcia discussed with dr pineda Patient Instructions DI for Ear Pain-Adult Additional Instructions see dr pineda at 2 pm for follow up Discharge Counseling Counseled pt/family regarding diagnosis, test results, medications/RX, follow up needs ED Critical Care Critical Care No at [id number]
[2017-04-04 20:45] LABS: HEMOGLOBIN 13.9 g/dL (12.2-16.2); LYMPH # 2.3 K/mm3 (0.7-4.5); LYMPH % 20.6 % (10-50.0)
[2017-04-04 22:13] VITALS: BP 119/67
--- NOTE | 2017-04-05 07:51 | RADIOLOGY REPORT PS360 ---
CHEST(2 VIEWS-NOT PORTABLE) HISTORY: COUGH ORDERING PHYSICIAN: Brea Barton MD PATIENT AGE: 52 years COMPARISON: None available FINDINGS: The cardiomediastinal silhouette and pulmonary vascularity are within normal limits. The lungs are clear without infiltrates, suspicious nodules, or pleural effusions. No acute bony abnormalities. IMPRESSION: Negative chest, no acute finding
== END 2017-04-04 22:18 | disposition home or self-care (01) ==
LOC: ER 19:51
PROVIDERS: Emergency Medicine
DX: H60.503 Unspecified acute noninfective otitis externa, bilateral (principal); R60.0 Localized edema; I10 Essential (primary) hypertension